=== PATIENT | female | born 1980 | race Caucasian/White ===

== ENCOUNTER → 2016-05-25 | Outpatient (CLI) | payer BC, OTHER ==
[2016-05-26 14:03] LABS: Crab IgE <0.35 kU/L (<0.35); Crab IgE Class CLASS 0; Lettuce IgE Class CLASS 0; Pork IgE Class CLASS 0
[2016-05-26 14:04] LABS: Beef IgE <0.35 kU/L (<0.35); Beef IgE Class CLASS 0; Yeast Bakers/Brew IgE <0.35 kU/L (<0.35); Yeast Bakers/Brew IgE Class CLASS 0
[2016-05-26 14:05] LABS: Lobster IgE <0.35 kU/L (<0.35); Lobster IgE Class CLASS 0; Oat IgE Class CLASS 0; Onion IgE <0.35 kU/L (<0.35); Onion IgE Class CLASS 0; Salmon IgE <0.35 kU/L (<0.35); Salmon IgE Class CLASS 0
[2016-05-26 14:06] LABS: Celery IgE <0.35 kU/L (<0.35); Celery IgE Class CLASS 0; Chicken IgE Class CLASS 0; Chocolate IgE Class CLASS 0; Egg Yolk IgE Class CLASS 0; Gluten IgE Class CLASS 0; Latex IgE Class CLASS 0
[2016-05-26 14:07] LABS: Avocado Class CLASS 0; Banana IgE Class CLASS 0; Coffee IgE <0.35 kU/L (<0.35); Coffee IgE Class CLASS 0; Cow's Milk IgE Class CLASS 0; Egg White IgE <0.35 kU/L (<0.35); Hazelnut IgE <0.35 kU/L (<0.35); Hazelnut IgE Class CLASS 0; Kiwi IgE <0.35 kU/L (<0.35); Kiwi IgE Class CLASS 0; Peanut IgE <0.35 kU/L (<0.35); Potato IgE <0.35 kU/L (<0.35); Potato IgE Class CLASS 0; Soybean IgE <0.35 kU/L (<0.35); Tea IgE <0.35 kU/L (<0.35); Tea IgE Class CLASS 0
== END | disposition home or self-care (01) ==
LOC: LABWHC1 09:30
PROVIDERS: ATTEND Otolaryngology
DX: J30.89 Other allergic rhinitis (principal)
CPT/HCPCS: 36415; 86003

== ENCOUNTER 2016-07-14 13:34 | Emergency (ER) | payer BC, OTHER ==
[2016-07-14 13:51] VITALS: TEMP 97.7
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
[2016-07-14] MEDS ORDERED: RX INFO: IV CONTRAST WAS GIVEN 1 EACH MISC MISCELLANE PRN (14:22)
[2016-07-14] MEDS ORDERED: SODIUM CHLORIDE 0.9% 1,000 ML IV STA (14:22)
[2016-07-14 14:57] LABS: Basophils # (A) 0.1 k/uL (0-0.2); Basophils % (A) 1 %; CH 30.8; CHCM 35.1; Eosinophils # (A) 0.1 k/uL (0-0.7); Eosinophils % (A) 1 %; HDW 3.16; HGB 15.2 gm/dL (11.4-16.0); Luc # (Auto) 0.35; Luc % (Auto) 4; Lymphocytes % (A) 36 %; MCH 30.4 pg (25.0-35.0); MCHC 34.4 g/dL (31.0-37.0); MCV 88.2 fL (80.0-100.0); Mean Platelet Volume 8.1; Monocytes # (A) 0.4 k/uL (0-1.0); Monocytes % (A) 5 %; Neutrophils # (A) 4.4 k/uL (1.3-7.7); Neutrophils % (A) 53 %; RBC 4.99 m/uL (3.80-5.40); RDW 13.5 % (11.5-15.5); WBC 8.3 k/uL (3.8-10.6); WBC (Perox) 8.18
[2016-07-14 15:01] LABS: ALT 173 U/L (9-52); AST 108 U/L (14-36); Alkaline Phosphatase 57 U/L (38-126); Anion Gap 11 mmol/L; Blood Urea Nitrogen 9 mg/dL (7-17); Calcium 9.9 mg/dL (8.4-10.2); Carbon Dioxide 29 mmol/L (22-30); Chloride 102 mmol/L (98-107); Glucose 93 mg/dL (74-99); Non-African American GFR(MDRD) >60 (>60 ml/min/1.73 sqM); Potassium 5.1 mmol/L (3.5-5.1); Sodium 142 mmol/L (137-145); Total Bilirubin 1.4 mg/dL (0.2-1.3); Total Protein 9.1 g/dL (6.3-8.2)
[2016-07-14 15:03] LABS: INR 0.9 (<1.1); Prothrombin Time 9.7 sec (9.0-12.0)
[2016-07-14 15:04] VITALS: RESP 16
[2016-07-14 15:23] LABS: Creatine Kinase MB 1.1 ng/mL (0.0-2.4)
[2016-07-14 15:38] LABS: Appearance,Urine Clear (Clear); Bacteria,Urine Rare /hpf; Bilirubin,Urine Negative (Negative); Glucose,Urine (UA) Negative (Negative); Ketones,Urine Negative (Negative); Leukocyte Esterase,Urine Negative (Negative); Mucus,Urine Rare /hpf; Nitrite,Urine Negative (Negative); PH, Urine 6.5 (5.0-8.0); Particle Count 1830; Protein,Urine Negative (Negative); RBC,Urine <1 /hpf (0-5); Specific Gravity,Urine 1.007 (1.001-1.035); Squamous Epithelial Cell,Urine 2 /hpf (0-4); UA Billing (MACRO vs. MICRO) MICRO; Urobilinogen,Urine <2.0 mg/dL (<2.0); WBC,Urine 1 /hpf (0-5)
[2016-07-14 15:49] LABS: Acetaminophen <10.0 ug/mL
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
--- NOTE | 2016-07-14 15:55 | XR ---
EXAMINATION TYPE: XR knee complete RT DATE OF EXAM ORDERED: 07/14/2016 3:50 PM HISTORY: Pain. COMPARISON: None. FINDINGS: No fracture, dislocation or joint effusion is seen. IMPRESSION: NORMAL RIGHT KNEE.
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
[2016-07-14 16:53] LABS: Hepatitis B Surface Ag Index 0.19
[2016-07-14 16:56] VITALS: BP 153/97; PULSE 77
[2016-07-14 16:59] LABS: Hepatitis B Core IgM Index 0.05
[2016-07-14 17:11] LABS: Hepatitis C Virus IgG Index 0.28
[2016-07-14 17:19] LABS: Hepatitis C Virus IgG Ab Negative (Negative)
== END 2016-07-14 16:56 | disposition home or self-care (01) ==
LOC: EC 13:34
DX: T14.8 Other injury of unspecified body region (principal); M79.601 Pain in right arm; M25.561 Pain in right knee; R31.9 Hematuria, unspecified; Z88.0 Allergy status to penicillin; V49.49XA Driver injured in collision with other motor vehicles in traffic accident, initial encounter
CPT/HCPCS: 36415; 93005; 86900; 86901; 80053; 80074; 82550; 82553; 83690; 85025; 85610; 85730; 86850; 81001; 83520; 73060; 73080; 73110; 73562; 71260; 74177; 96360; 96361; 99284; Q9967

== ENCOUNTER 2016-07-17 09:53 | Emergency (ER) | payer BC, OTHER ==
[2016-07-17 09:58] VITALS: RESP 18
[2016-07-17] MEDS ORDERED: ONDANSETRON 4 MG/2 ML VIAL IVP STA (11:02)
[2016-07-17] MEDS ORDERED: KETOROLAC 30 MG/ML 1 ML VIAL IVP STA (11:02)
[2016-07-17] MEDS ORDERED: RX INFO: IV CONTRAST WAS GIVEN 1 EACH MISC MISCELLANE PRN (11:02)
[2016-07-17] MEDS ORDERED: SODIUM CHLORIDE 0.9% 1,000 ML IV STA ×2 (11:02)
[2016-07-17] MEDS ORDERED: MAG HYDROX/AL HYDROX/SIMETH 30 ML, HYOSCYAMINE ELIXIR 10 ML, CIMETIDINE HCL 300 MG, LID... PO STA ×4 (11:03)
[2016-07-17 11:36] LABS: Basophils % (A) 0 %; CH 30.9; CHCM 35.3; Eosinophils # (A) 0.1 k/uL (0-0.7); Eosinophils % (A) 1 %; HCT 43.9 % (34.0-46.0); HDW 3.17; Luc % (Auto) 2; Lymphocytes # (A) 1.1 k/uL (1.0-4.8); Lymphocytes % (A) 13 %; MCH 30.1 pg (25.0-35.0); MCHC 34.2 g/dL (31.0-37.0); Mean Platelet Volume 8.1; Monocytes # (A) 0.3 k/uL (0-1.0); Monocytes % (A) 3 %; Neutrophils # (A) 7.1 k/uL (1.3-7.7); Neutrophils % (A) 81 %; RBC 4.99 m/uL (3.80-5.40); RDW 13.4 % (11.5-15.5); WBC 8.7 k/uL (3.8-10.6); WBC (Perox) 8.88
[2016-07-17 11:45] LABS: ALT 134 U/L (9-52); AST 48 U/L (14-36); Alkaline Phosphatase 65 U/L (38-126); Amylase 53 U/L (30-110); Anion Gap 13 mmol/L; Blood Urea Nitrogen 8 mg/dL (7-17); Calcium 9.4 mg/dL (8.4-10.2); Carbon Dioxide 27 mmol/L (22-30); Chloride 102 mmol/L (98-107); Glucose 103 mg/dL (74-99); Non-African American GFR(MDRD) >60 (>60 ml/min/1.73 sqM); Potassium 3.9 mmol/L (3.5-5.1); Sodium 142 mmol/L (137-145); Total Bilirubin 1.2 mg/dL (0.2-1.3); Total Protein 8.4 g/dL (6.3-8.2)
[2016-07-17 11:56] LABS: Partial Thromboplastin Time 25.5 sec (22.0-30.0); Prothrombin Time 10.2 sec (9.0-12.0)
[2016-07-17 11:56] LABS: Appearance,Urine Cloudy (Clear); Bacteria,Urine Rare /hpf; Bilirubin,Urine Negative (Negative); Glucose,Urine (UA) Negative (Negative); Ketones,Urine Negative (Negative); Leukocyte Esterase,Urine Large (Negative); Mucus,Urine Rare /hpf; Nitrite,Urine Negative (Negative); Particle Count 23914; Protein,Urine Trace (Negative); Specific Gravity,Urine 1.013 (1.001-1.035); Squamous Epithelial Cell,Urine 17 /hpf (0-4); UA Billing (MACRO vs. MICRO) MICRO; Urobilinogen,Urine <2.0 mg/dL (<2.0); WBC,Urine 36 /hpf (0-5)
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
[2016-07-17 12:34] VITALS: BP 144/87; PULSE 94; TEMP 100.1
== END 2016-07-17 12:40 | disposition home or self-care (01) ==
LOC: EC 09:53
DX: N39.0 Urinary tract infection, site not specified (principal); N83.209 Unspecified ovarian cyst, unspecified side; K76.0 Fatty (change of) liver, not elsewhere classified; R74.0 Nonspecific elevation of levels of transaminase and lactic acid dehydrogenase [LDH]; R19.7 Diarrhea, unspecified; I10 Essential (primary) hypertension; Z88.1 Allergy status to other antibiotic agents
CPT/HCPCS: 99284; 96374; 96375; 96361; 36415; 80053; 82150; 83690; 85025; 85610; 85730; 81001; 74177; J2405; J1885; Q9967

== ENCOUNTER 2016-09-13 13:38 | Emergency (ER) | payer BC ==
[2016-09-13 15:19] VITALS: PULSE 95
--- NOTE | 2016-09-13 15:24 | ED ---
General Adult HPI - General Chief complaint: Dizziness Stated complaint: Back Pain Time Seen by Provider: 09/13/16 15:06 Source: patient Mode of arrival: ambulatory Limitations: no limitations - History of Present Illness Initial comments: This patient is a 36-year-old woman who complains of over 2 months of left mid back pain. Patient describes it as constant, aching, moderately severe area she has not noted any relieving factors and states that it is worse when she presses there. The patient denied any preceding trauma. She has seen her physician. She states that she has been treated for urinary tract infection twice. She states that she has been set up to have an ultrasound performed but this will not be until next week and she feels that the pain will not let her wait until then. She denies fever or chills, chest pain, palpitations, dyspnea , diaphoresis. She has had some nausea and some generalized abdominal bloating type discomfort. Patient denies any weakness or numbness of the extremities. She has not had any change in bladder or bowel function nor any saddle anesthesia. Onset/Timin -: month(s) Location: back, left Radiation: non-radiation Quality: aching Consistency: constant Improves with: none Worsens with: movement Associated Symptoms: nausea/vomiting Treatments Prior to Arrival: other (Antibiotic) - Related Data Home Medications Medication Instructions Recorded Confirmed Lisinopril-Hctz 10-12.5 mg 1 tab PO DAILY 09/13/16 09/13/16 [Zestoretic 10-12.5] Montelukast [Singulair] 10 mg PO DAILY PRN 09/13/16 09/13/16 Previous Rx's Medication Instructions Recorded traMADol HCl [Ultram] 50 mg PO Q6H PRN #20 tab 09/13/16 Allergies Allergy/AdvReac Type Severity Reaction Status Date / Time amoxicillin Allergy Rash/Hives Verified 09/13/16 15:23 Review of Systems ROS Statement: Those systems with pertinent positive or pertinent negative responses have been documented in the HPI. ROS Other: All systems not noted in ROS Statement are negative. Constitutional: Denies: fever, chills Respiratory: Denies: cough, dyspnea Cardiovascular: Denies: chest pain, palpitations, edema Gastrointestinal: Reports: as per HPI, abdominal pain Genitourinary: Denies: dysuria, frequency, hematuria, discharge Musculoskeletal: Reports: as per HPI, back pain Skin: Denies: rash Neurological: Denies: headache, weakness, numbness, paresthesias, abnormal gait Past Medical History Past Medical History: No Reported History Additional Past Medical History / Comment(s): gestational diabetes History of Any Multi-Drug Resistant Organisms: None Reported Past Surgical History: Cholecystectomy, Tubal Ligation Past Psychological History: Anxiety, Depression Smoking Status: Never smoker Past Alcohol Use History: None Reported Past Drug Use History: None Reported General Exam Limitations: no limitations General appearance: alert, in no apparent distress, obese Head exam: Present: atraumatic, normocephalic Eye exam: Present: normal appearance Neck exam: Present: normal inspection, full ROM. Absent: tenderness Respiratory exam: Present: normal lung sounds bilaterally. Absent: respiratory distress, wheezes, rales, rhonchi, stridor Cardiovascular Exam: Present: regular rate, normal rhythm, normal heart sounds. Absent: systolic murmur, diastolic murmur, rubs, gallop GI/Abdominal exam: Present: soft. Absent: distended, tenderness, guarding, rebound, mass Extremities exam: Present: normal inspection, normal capillary refill. Absent: pedal edema, calf tenderness Back exam: Present: full ROM, paraspinal tenderness. Absent: CVA tenderness (R) , CVA tenderness (L), vertebral tenderness, rash noted Neurological exam: Present: alert, reflexes normal. Absent: motor sensory deficit Skin exam: Present: warm, dry, intact, normal color. Absent: rash Course Vital Signs 09/13/16 09/13/16 13:52 15:01 Temperature 98.7 F 98.2 F Pulse Rate 98 95 Respiratory 18 18 Rate Blood Pressure 122/71 135/83 O2 Sat by Pulse 99 98 Oximetry Medical Decision Making - Lab Data Result diagrams: 09/13/16 15:48 09/13/16 15:48 Lab Results 09/13/16 09/13/16 09/13/16 Range/Units 15:20 15:48 15:48 WBC 10.7 H (3.8-10.6) k/uL RBC 4.84 (3.80-5.40) m/uL Hgb 14.7 (11.4-16.0) gm/dL Hct 43.1 (34.0-46.0) % MCV 89.1 (80.0-100.0) fL MCH 30.4 (25.0-35.0) pg MCHC 34.1 (31.0-37.0) g/dL RDW 13.5 (11.5-15.5) % Plt Count 220 (150-450) k/uL Neutrophils % 59 % Lymphocytes % 33 % Monocytes % 5 % Eosinophils % 1 % Basophils % 1 % Neutrophils # 6.3 (1.3-7.7) k/uL Lymphocytes # 3.5 (1.0-4.8) k/uL Monocytes # 0.5 (0-1.0) k/uL Eosinophils # 0.1 (0-0.7) k/uL Basophils # 0.1 (0-0.2) k/uL ESR Cancelled Sodium 139 (137-145) mmol/L Potassium 3.8 (3.5-5.1) mmol/L Chloride 101 (98-107) mmol/L Carbon Dioxide 28 (22-30) mmol/L Anion Gap 10 mmol/L BUN 10 (7-17) mg/dL Creatinine 0.60 (0.52-1.04) mg/dL Est GFR (MDRD) Af Amer >60 (>60 ml/min/1.73 sqM) Est GFR (MDRD) Non-Af >60 (>60 ml/min/1.73 sqM) Glucose 97 (74-99) mg/dL Calcium 9.5 (8.4-10.2) mg/dL Total Bilirubin 0.8 (0.2-1.3) mg/dL AST 98 H (14-36) U/L ALT 185 H (9-52) U/L Alkaline Phosphatase 74 (38-126) U/L Total Protein 7.7 (6.3-8.2) g/dL Albumin 4.3 (3.5-5.0) g/dL Amylase 69 (30-110) U/L Lipase 194 (23-300) U/L Urine Color Colorless Urine Appearance Clear (Clear) Urine pH 6.0 (5.0-8.0) Ur Specific [place] 1.003 (1.001-1.035) Urine Protein Negative (Negative) Urine Glucose (UA) Negative (Negative) Urine Ketones Negative (Negative) Urine Blood Moderate H (Negative) Urine Nitrite Negative (Negative) Urine Bilirubin Negative (Negative) Urine Urobilinogen <2.0 (<2.0) mg/dL Ur Leukocyte Esterase Trace H (Negative) Urine RBC 2 (0-5) /hpf Urine WBC 2 (0-5) /hpf Ur Squamous Epith Cells 1 (0-4) /hpf Urine Bacteria Few H (None) /hpf Urine Mucus Rare H (None) /hpf Disposition Clinical Impression: Ovarian cyst Disposition: HOME SELF-CARE Condition: Fair Instructions: Ovarian Cyst (ED) Prescriptions: traMADol HCl [Ultram] 50 mg PO Q6H PRN #20 tab PRN Reason: Pain Referrals: Juan Pablo Castro MD [Primary Care Provider] - 1-2 days Debo Beebe MD [STAFF PHYSICIAN] - 1-2 days
[2016-09-13 15:44] LABS: Appearance,Urine Clear (Clear); Bacteria,Urine Few /hpf; Bilirubin,Urine Negative (Negative); Glucose,Urine (UA) Negative (Negative); Ketones,Urine Negative (Negative); Leukocyte Esterase,Urine Trace (Negative); Mucus,Urine Rare /hpf; Nitrite,Urine Negative (Negative); Particle Count 4872; Protein,Urine Negative (Negative); RBC,Urine 2 /hpf (0-5); Specific Gravity,Urine 1.003 (1.001-1.035); Squamous Epithelial Cell,Urine 1 /hpf (0-4); UA Billing (MACRO vs. MICRO) MICRO; Urobilinogen,Urine <2.0 mg/dL (<2.0); WBC,Urine 2 /hpf (0-5)
[2016-09-13 16:12] LABS: Basophils # (A) 0.1 k/uL (0-0.2); Basophils % (A) 1 %; CH 30.8; CHCM 34.7; Eosinophils # (A) 0.1 k/uL (0-0.7); Eosinophils % (A) 1 %; HCT 43.1 % (34.0-46.0); HDW 2.87; HGB 14.7 gm/dL (11.4-16.0); Luc # (Auto) 0.26; Luc % (Auto) 2; Lymphocytes # (A) 3.5 k/uL (1.0-4.8); Lymphocytes % (A) 33 %; MCH 30.4 pg (25.0-35.0); MCHC 34.1 g/dL (31.0-37.0); MCV 89.1 fL (80.0-100.0); Mean Platelet Volume 8.4; Monocytes # (A) 0.5 k/uL (0-1.0); Monocytes % (A) 5 %; Neutrophils # (A) 6.3 k/uL (1.3-7.7); Neutrophils % (A) 59 %; RBC 4.84 m/uL (3.80-5.40); RDW 13.5 % (11.5-15.5); WBC 10.7 k/uL (3.8-10.6); WBC (Perox) 10.71
[2016-09-13 16:19] LABS: ALT 185 U/L (9-52); AST 98 U/L (14-36); Alkaline Phosphatase 74 U/L (38-126); Amylase 69 U/L (30-110); Anion Gap 10 mmol/L; Blood Urea Nitrogen 10 mg/dL (7-17); Calcium 9.5 mg/dL (8.4-10.2); Carbon Dioxide 28 mmol/L (22-30); Chloride 101 mmol/L (98-107); Glucose 97 mg/dL (74-99); Non-African American GFR(MDRD) >60 (>60 ml/min/1.73 sqM); Potassium 3.8 mmol/L (3.5-5.1); Sodium 139 mmol/L (137-145); Total Bilirubin 0.8 mg/dL (0.2-1.3); Total Protein 7.7 g/dL (6.3-8.2)
--- NOTE | 2016-09-13 17:08 | CT ---
EXAMINATION TYPE: CT abdomen pelvis wo con DATE OF EXAM: 09/13/2016 4:55 PM COMPARISON: 07/17/2016 HISTORY: Left flank pain and generalized abdominal pain. CT DLP: 1008.30 mGycm Automated exposure control for dose reduction was used. TECHNIQUE: Helical acquisition of images was performed from the lung bases through the pelvis. FINDINGS: The lung bases are clear of consolidation. There is no pleural effusion. Liver shows no focal defect. There are clips from cholecystectomy. Spleen appears normal. There is decreased density in the liver consistent with fatty infiltration. There is no sign of pancreatic mass. There is no adrenal mass. K idneys have normal size and contour. There is no hydronephrosis. There is no retroperitoneal adenopat hy. There is a small umbilical hernia contains omental fat. I see no intestinal wall thickening. Ther e are no dilated loops. Appendix is not seen. There is no sign of appendicitis. There is a 2 cm cyst on the left ovary. Bladder distends smoothly. There is no ascites. I see no bony destructive process. Uterus is retroverted. IMPRESSION: THERE IS EVIDENCE FOR SOME MILD FATTY INFILTRATION OF THE LIVER. NO SIGN OF ACUTE ABDOMEN AND PELVIS. NO ADVERSE CHANGE COMPARED TO OLD EXAM.
[2016-09-13 17:41] VITALS: BP 151/71; RESP 16; TEMP 98.5
== END 2016-09-13 17:38 | disposition home or self-care (01) ==
LOC: EC 13:38
DX: N83.202 Unspecified ovarian cyst, left side (principal); M54.9 Dorsalgia, unspecified; R11.2 Nausea with vomiting, unspecified; R10.84 Generalized abdominal pain; Z79.899 Other long term (current) drug therapy; Z88.0 Allergy status to penicillin; Z90.49 Acquired absence of other specified parts of digestive tract; Z98.51 Tubal ligation status
CPT/HCPCS: 36415; 74176; 80053; 81001; 82150; 83690; 85025; 85652; 99284

== ENCOUNTER → 2016-09-21 | Outpatient (CLI) | payer BC ==
--- NOTE | 2016-09-21 22:15 | US ---
EXAMINATION TYPE: US kidneys/renal and bladder DATE OF EXAM: 09/21/2016 3:10 PM COMPARISON: NONE CLINICAL HISTORY: 36-year-old female with R92.8 Abnormal mammo. Lower back pain. TECHNIQUE: Multiple sonographic images of the kidneys and bladder were obtained. FINDINGS: CONSUMER INSIGHT ANALYST NOTES: Larger habitus Right Kidney: 12.5 x 5.0 x 6.5 cm without hydronephrosis. Left Kidney: 10.9 x 5.6 x 5.5 cm without hydronephrosis. No gross abnormality of the urine distended bladder. However, neither ureteral jet is seen during the course of the exam. IMPRESSION: No hydronephrosis.
== END | disposition home or self-care (01) ==
LOC: RADUSWWP 14:31
PROVIDERS: ATTEND Family Medicine
DX: M54.5 Low back pain (principal)
CPT/HCPCS: 76770

== ENCOUNTER → 2016-10-27 | Outpatient (CLI) | payer BC, OTHER ==
[2016-10-27 15:23] LABS: Follicle Stimulating Hormone 3.7 mIU/mL; Prolactin 17.1 ng/mL (3.0-18.6)
--- NOTE | 2016-10-27 16:20 | US ---
EXAMINATION TYPE: US pelvic complete DATE OF EXAM: 10/27/2016 COMPARISON: CT CLINICAL HISTORY: N91.2 AMENORRHEA. TECHNIQUE: Transabdominal (TA) Date of LMP: one year ago EXAM MEASUREMENTS: Uterus: 9.4 x 5.4 x 7.2 cm Endometrial Stripe: 1.2 cm Right Ovary: 3.2 x 2.2 x 2.7 cm Left Ovary: 4.8 x 3.5 x 3.8 cm 1. Uterus: Retroverted wnl 2. Endometrium: measures 1.2 cm, no cycles for one year per patient. 3. Right Ovary: wnl 4. Left Ovary: 2.0 cm cyst 5. Bilateral Adnexa: wnl 6. Posterior cul-de-sac: no free fluid IMPRESSION: Left ovarian cyst
== END | disposition home or self-care (01) ==
LOC: RADUSWWP 14:19
PROVIDERS: ATTEND Obstetrics & Gynecology
DX: N83.202 Unspecified ovarian cyst, left side (principal)
CPT/HCPCS: 36415; 76856; 82627; 82670; 83001; 83002; 84146; 84403

== ENCOUNTER → 2019-01-27 | Outpatient (CLI) | payer BC, OTHER ==
--- NOTE | 2019-01-27 17:21 | US ---
EXAMINATION TYPE: US thyroid st tissue head/neck DATE OF EXAM: 01/27/2019 COMPARISON: NONE CLINICAL HISTORY: 38-year-old female E04.9 Nontoxic Goiter. Technique: Multiple sonographic images of the thyroid gland are obtained. FINDINGS: GLAND SIZE: Right Lobe: 5.0 x 1.2 x 1.7 cm Overall Parenchyma: homogenous Left Lobe: 4.6 x 1.1 x 1.7 cm Overall Parenchyma: homogeneous Isthmus Thickness: .2 cm NODULES RIGHT: # of nodules measured on right: 0 LEFT: # of nodules measured on left: 0 ISTHMUS: # of nodules measured in the isthmus: 0 Bilateral neck scanned, no evidence of lymphadenopathy. IMPRESSION: 1. No discrete nodules. 2. Thyroid gland measures upper limits of normal in size as above.
== END | disposition home or self-care (01) ==
LOC: RADUSWWP 14:26
PROVIDERS: ATTEND Family Medicine
DX: E04.9 Nontoxic goiter, unspecified (principal)
CPT/HCPCS: 76536

== ENCOUNTER 2019-02-08 09:18 | Emergency (ER) | payer BC, OTHER ==
[2019-02-08 09:24] VITALS: BP 126/88; PULSE 92; RESP 18; TEMP 97.9
--- NOTE | 2019-02-08 10:04 | ED ---
Skin/Abscess/FB HPI - General Chief complaint: Skin/Abscess/Foreign Body Stated complaint: rt leg bump Time Seen by Provider: 02/08/19 09:42 Source: patient, RN notes reviewed Mode of arrival: ambulatory Limitations: no limitations - History of Present Illness Initial comments: 30-year-old female presents emergency from chief complaint of abscess to her right groin. Patient states it started a couple days ago. There's been a small amount of drainage states area just very firm, red in nature. Patient has no history of abscess or recurrent skin infections. Patient states that she's had no fever, chills. Patient does admit she has ALLERGY to amoxicillin no other drug ALLERGIES. Patient offers no complaints. - Related Data Home Medications Medication Instructions Recorded Confirmed Lisinopril-Hctz 10-12.5 mg 1 tab PO DAILY 09/13/16 09/13/16 [Zestoretic 10-12.5] Montelukast [Singulair] 10 mg PO DAILY PRN 09/13/16 09/13/16 Previous Rx's Medication Instructions Recorded traMADol HCl [Ultram] 50 mg PO Q6H PRN #20 tab 09/13/16 Cephalexin [Keflex] 500 mg PO Q6HR #40 cap 02/08/19 Sulfamethox-Tmp 800-160Mg [Bactrim 1 each PO Q12HR #20 tab 02/08/19 Ds] Allergies Allergy/AdvReac Type Severity Reaction Status Date / Time amoxicillin Allergy Rash/Hives Verified 09/13/16 15:23 Review of Systems ROS Statement: Those systems with pertinent positive or pertinent negative responses have been documented in the HPI. ROS Other: All systems not noted in ROS Statement are negative. Past Medical History Past Medical History: No Reported History Additional Past Medical History / Comment(s): gestational diabetes History of Any Multi-Drug Resistant Organisms: None Reported Past Surgical History: Cholecystectomy, Tubal Ligation Past Psychological History: Anxiety, Depression Smoking Status: Never smoker Past Alcohol Use History: None Reported Past Drug Use History: None Reported General Exam Limitations: no limitations General appearance: alert, in no apparent distress Head exam: Present: atraumatic, normocephalic, normal inspection Eye exam: Present: normal appearance, PERRL, EOMI. Absent: scleral icterus, conjunctival injection, periorbital swelling Respiratory exam: Present: normal lung sounds bilaterally. Absent: respiratory distress, wheezes, rales, rhonchi, stridor Cardiovascular Exam: Present: regular rate, normal rhythm, normal heart sounds. Absent: systolic murmur, diastolic murmur, rubs, gallop, clicks Extremities exam: Present: other (Right medial thigh there is approximate 2 cm area of erythema that is firm and indurated with no fluctuation) Skin exam: Present: warm, dry, intact Course Vital Signs 02/08/19 09:22 Temperature 97.9 F Pulse Rate 92 Respiratory 18 Rate Blood Pressure 126/88 O2 Sat by Pulse 98 Oximetry Medical Decision Making - Medical Decision Making 38-year-old female presented for right groin abscess. This is very firm in nature and nonfluctuant did not feel that she'll benefit from a 90 at this time. She was started on antibiotics, warm compresses and continue anti- inflammatories. Disposition Clinical Impression: Abscess of groin, right Disposition: HOME SELF-CARE Condition: Stable Instructions (If sedation given, give patient instructions): Abscess (ED) Additional Instructions: Please return to the Emergency Department if symptoms worsen or any other concerns. Prescriptions: Sulfamethox-Tmp 800-160Mg [Bactrim Ds] 1 each PO Q12HR #20 tab Cephalexin [Keflex] 500 mg PO Q6HR #40 cap Is patient prescribed a controlled substance at d/c from ED?: No Referrals: Srinivas Ocampo MD [Primary Care Provider] - 1-2 days Time of Disposition: 10:04
== END 2019-02-08 10:08 | disposition home or self-care (01) ==
LOC: EC 09:18
DX: L02.214 Cutaneous abscess of groin (principal); Z88.0 Allergy status to penicillin
CPT/HCPCS: 99283

== ENCOUNTER → 2019-07-14 | Outpatient (CLI) | payer BC, OTHER ==
--- NOTE | 2019-07-23 19:38 | EM ---
EVENT MONITOR SEVEN-DAY EVENT MONITOR: The patient was monitored for 7 days. The baseline rhythm appeared to be sinus mechanism. During the 7 days of monitoring, the patient did have multiple episodes of sinus tachycardia with a heart rate around 130 beats per minute. No evidence of any SVT or atrial fibrillation noted. No evidence of any ventricular tachycardia seen. No evidence of any advanced AV block seen. No evidence of any concerning arrhythmia noted. CONCLUSION: 1. This is a 7-day event monitor. 2. Sinus rhythm as a baseline mechanism. 3. The patient did have multiple episodes of sinus tachycardia. 4. During the episodes of sinus tachycardia, the patient did have symptoms of chest discomfort and chest tightness. 5. No evidence of any advanced AV block seen. 6. No evidence of any sinus pause or sinus arrest. 7. No evidence of any SVT or atrial fibrillation. MMODL / IJN: [id number] /
== END | disposition home or self-care (01) ==
LOC: RADECHMAIN 11:46
PROVIDERS: ATTEND Family Medicine
DX: R00.0 Tachycardia, unspecified (principal); R07.89 Other chest pain
CPT/HCPCS: 93270

== ENCOUNTER 2019-10-01 14:47 | Emergency (ER) | payer BC, OTHER ==
[2019-10-01 14:57] VITALS: RESP 18; TEMP 98.3
[2019-10-01] MEDS ORDERED: DIPH,PERTUS(ACELL)TETVAC-LF 0.5 ML VIAL IM ONE (15:23)
[2019-10-01] MEDS ORDERED: CEPHALEXIN 500MG STARTER PACK 4 CAP BTL PO STA (15:36)
[2019-10-01] MEDS ORDERED: ACET/COD 300 MG/30 MG STARTER PACK 6 TAB BTL PO STA (15:38)
--- NOTE | 2019-10-01 15:46 | ED ---
Skin/Abscess/FB HPI - General Chief complaint: Skin/Abscess/Foreign Body Stated complaint: Has something stuck in R foot Time Seen by Provider: 10/01/19 15:12 Source: patient Mode of arrival: wheelchair Limitations: no limitations - History of Present Illness Initial comments: 31-year-old female stating that there is a ric part of a chair leg stuck in the patient right lateral aspect of foot pad. Pt states tetanus is no UTD. injury occurred just prior to arrival and she did not want to remove the object herself. Patient denies any other area of injury. Denies DM or MRSA history. remaining ROS (-). - Related Data Home Medications Medication Instructions Recorded Confirmed Lisinopril-Hctz 10-12.5 mg 1 tab PO DAILY 09/13/16 09/13/16 [Zestoretic 10-12.5] Montelukast [Singulair] 10 mg PO DAILY PRN 09/13/16 09/13/16 Previous Rx's Medication Instructions Recorded traMADol HCl [Ultram] 50 mg PO Q6H PRN #20 tab 09/13/16 Cephalexin [Keflex] 500 mg PO Q6HR #40 cap 02/08/19 Sulfamethox-Tmp 800-160Mg [Bactrim 1 each PO Q12HR #20 tab 02/08/19 Ds] Cephalexin [Keflex] 500 mg PO Q6HR 7 Days #28 cap 10/01/19 Allergies Allergy/AdvReac Type Severity Reaction Status Date / Time amoxicillin Allergy Rash/Hives Verified 10/01/19 14:58 Review of Systems ROS Statement: Those systems with pertinent positive or pertinent negative responses have been documented in the HPI. ROS Other: All systems not noted in ROS Statement are negative. Past Medical History Past Medical History: Hypertension Additional Past Medical History / Comment(s): gestational diabetes History of Any Multi-Drug Resistant Organisms: None Reported Past Surgical History: Cholecystectomy, Tubal Ligation Past Psychological History: Anxiety, Depression Smoking Status: Never smoker Past Alcohol Use History: None Reported Past Drug Use History: None Reported General Exam - General Exam Comments Initial Comments: General: The patient is awake and alert, in no distress, and does not appear acutely ill. Eye: Pupils are equal, round and reactive to light, extra-ocular movements are intact. No nystagmus. There is normal conjunctiva bilaterally. No signs of icterus. Ears, nose, mouth and throat: There are moist mucous membranes and no oral lesions. Musculoskeletal: Normal ROM, no tenderness. Strength 5/5. Sensation intact. DP pulses equal bilaterally 2+. Neurological: A&O x 3. CN II-XII intact grossly, There are no obvious motor or sensory deficits. Coordination appears grossly intact. Speech is normal. Skin: Skin is warm and dry and no rashes. Ric foreign body right lateral foot pad, superficial easily removed, blood on FB 1/3cm. Patient has puncture where FB removed-- appear whole, sharp point tip, no rough jagged tip worrisome for broke off portion. Psychiatric: Cooperative, appropriate mood & affect, normal judgment. Limitations: no limitations Course Vital Signs 10/01/19 14:55 Temperature 98.3 F Pulse Rate 103 H Respiratory 18 Rate Blood Pressure 122/80 O2 Sat by Pulse 99 Oximetry Medical Decision Making - Medical Decision Making 39-year-old female presented for right foot foreign body foreign body removed the foreign body appeared physically intact no evidence of retained foreign body foot was soaked and cleansed tetanus updated patient educated on signs of infection L be discharged with Keflex. Return parameters discussed discussed case with him prior who is agreeable to care for discharge at this time. Pt aware that this is a high risk for infection. Disposition Clinical Impression: Foreign body in foot, Puncture wound Disposition: HOME SELF-CARE Condition: Good Instructions (If sedation given, give patient instructions): Soft Tissue Fore ign Body (ED), Puncture Wound (ED) Additional Instructions: Please use medication as discussed. Please follow-up with family doctor in the next 2 days, this injury is high risk for infection PLEASE WATCH FOR INCREASING REDNESS/SWELLING OR PAIN, immediate return to ER for these symptoms or if you develop a fever. Please return to emergency room if the symptoms increase or worsen or for any other concerns. Prescriptions: Cephalexin [Keflex] 500 mg PO Q6HR 7 Days #28 cap Is patient prescribed a controlled substance at d/c from ED?: No Referrals: Srinivas Ocampo MD [Primary Care Provider] - 1-2 days Time of Disposition: 16:05
[2019-10-01 16:30] VITALS: BP 120/76; PULSE 89
== END 2019-10-01 16:35 | disposition home or self-care (01) ==
LOC: EC 14:47
DX: S81.841A Puncture wound with foreign body, right lower leg, initial encounter (principal); I10 Essential (primary) hypertension; Z23 Encounter for immunization; Z79.899 Other long term (current) drug therapy; Z88.0 Allergy status to penicillin; W45.8XXA Other foreign body or object entering through skin, initial encounter; Y92.89 Other specified places as the place of occurrence of the external cause
CPT/HCPCS: 10120; 90471; 90715; 99283

== ENCOUNTER → 2020-03-12 | Outpatient (CLI) | payer BC, OTHER | END | disposition home or self-care (01) | LOC: LABWHC1 14:38 | PROVIDERS: ATTEND Family Medicine | DX: R05 Cough (principal) | CPT/HCPCS: 87502; U0003; C9803 ==

== ENCOUNTER 2020-05-07 09:28 | Emergency (ER) | payer BC, OTHER ==
[2020-05-07 09:33] VITALS: BP 136/89; PULSE 102; RESP 18; TEMP 98.4
--- NOTE | 2020-05-07 09:42 | ED ---
URI HPI - General Source: patient, RN notes reviewed Mode of arrival: ambulatory Limitations: no limitations <Chuy Combs - Last Filed: 05/07/20 10:04> <Karen Terry - Last Filed: 05/08/20 12:54> - General Chief Complaint: Upper Respiratory Infection Stated Complaint: LOST OF TASTE/SORE THROAT/FATIGUE Time Seen by Provider: 05/07/20 09:35 - History of Present Illness Initial Comments: 39-year-old female presents emergency Department chief complaint of cough congestion bodyaches,. Patient states that she started symptoms 3 days ago. Patient does have a known exposure. Patient denies any significant shortness breath, no significant GI symptoms other than slight nausea. No history of COPD or asthma. Patient denies any chest pain, headache dizziness fevers or chills. (Chuy Combs) - Related Data Home Medications Medication Instructions Recorded Confirmed Lisinopril-Hctz 10-12.5 mg 1 tab PO DAILY 09/13/16 09/13/16 [Zestoretic 10-12.5] Montelukast [Singulair] 10 mg PO DAILY PRN 09/13/16 09/13/16 Previous Rx's Medication Instructions Recorded traMADol HCl [Ultram] 50 mg PO Q6H PRN #20 tab 09/13/16 Cephalexin [Keflex] 500 mg PO Q6HR #40 cap 02/08/19 Sulfamethox-Tmp 800-160Mg [Bactrim 1 each PO Q12HR #20 tab 02/08/19 Ds] Cephalexin [Keflex] 500 mg PO Q6HR 7 Days #28 cap 10/01/19 Allergies Allergy/AdvReac Type Severity Reaction Status Date / Time amoxicillin Allergy Rash/Hives Verified 05/07/20 09:34 Review of Systems ROS Other: All systems not noted in ROS Statement are negative. <Chuy Combs - Last Filed: 05/07/20 10:04> ROS Other: All systems not noted in ROS Statement are negative. <Karen Terry - Last Filed: 05/08/20 12:54> ROS Statement: Those systems with pertinent positive or pertinent negative responses have been documented in the HPI. Past Medical History Past Medical History: Hypertension Additional Past Medical History / Comment(s): gestational diabetes History of Any Multi-Drug Resistant Organisms: None Reported Past Surgical History: Cholecystectomy, Tubal Ligation Past Psychological History: Anxiety, Depression Smoking Status: Never smoker Past Alcohol Use History: Occasional Past Drug Use History: None Reported <Chuy Combs - Last Filed: 05/07/20 10:04> General Exam Limitations: no limitations General appearance: alert, in no apparent distress Head exam: Present: atraumatic, normocephalic, normal inspection Eye exam: Present: normal appearance, PERRL, EOMI. Absent: scleral icterus, conjunctival injection, periorbital swelling ENT exam: Present: normal exam, normal oropharynx, mucous membranes moist Neck exam: Present: normal inspection, full ROM. Absent: tenderness, men ingismus, lymphadenopathy Respiratory exam: Present: normal lung sounds bilaterally. Absent: respiratory distress, wheezes, rales, rhonchi, stridor Cardiovascular Exam: Present: regular rate, normal rhythm, normal heart sounds. Absent: systolic murmur, diastolic murmur, rubs, gallop, clicks GI/Abdominal exam: Present: soft, normal bowel sounds. Absent: distended, tenderness, guarding, rebound, rigid Back exam: Absent: CVA tenderness (R), CVA tenderness (L) Neurological exam: Present: alert Skin exam: Present: warm, dry, intact, normal color. Absent: rash <Chuy Combs - Last Filed: 05/07/20 10:04> Course Vital Signs 05/07/20 09:31 Temperature 98.4 F Pulse Rate 102 H Respiratory 18 Rate Blood Pressure 136/89 O2 Sat by Pulse 98 Oximetry Medical Decision Making <Chuy Combs - Last Filed: 05/07/20 10:04> <Karen Terry - Last Filed: 05/08/20 12:54> - Medical Decision Making X-ray is unremarkable, vitals are within normal limits patient is a signs distress. Patient is Covid positive. Patient will be discharged in stable condition. She is instructed to self quarantining for 14 days. Patient is return for any worsening change in symptoms. (Chuy Combs) I was available for consultation in the emergency department. The history and physical exam were done by the midlevel provider. I was consulted for this patients care. I reviewed the case with the midlevel provider and based on their presentation of the patient, I agree with the assessment, medical decision making and plan of care as documented. Chart was dictated using [employer] dictation software. Attempts were made to correct any dictation errors however some typographical errors may persist. Patient was seen during a national state of emergency due to the Covid-19 pandemic. (Karen Terry) - Lab Data Lab Results 05/07/20 Range/Units 09:41 Coronavirus (PCR) Detected A (Not Detectd) Disposition Is patient prescribed a controlled substance at d/c from ED?: No Time of Disposition: 10:05 <Chuy Combs - Last Filed: 05/07/20 10:04> <Karen Terry - Last Filed: 05/08/20 12:54> Clinical Impression: COVID-19 Disposition: HOME SELF-CARE Condition: Stable Instructions (If sedation given, give patient instructions): Upper Respiratory Infection (ED) Additional Instructions: Please return to the Emergency Department if symptoms worsen or any other concerns. Take [id number] vitamin D, vitamin D3, zinc Referrals: Srinivas Ocampo MD [Primary Care Provider] - 1-2 days
--- NOTE | 2020-05-07 09:56 | XR ---
EXAMINATION TYPE: XR chest 2V DATE OF EXAM: 05/07/2020 COMPARISON: Chest x-ray December 22, 2014 HISTORY: Loss of taste and fatigue. TECHNIQUE: Frontal and lateral views of the chest are obtained. FINDINGS: There is no new suspicious focal air space opacity, pleural effusion, or pneumothorax seen . The cardiac silhouette size remains within normal limits. The osseous structures are intact. Cho lecystectomy clips are noted. IMPRESSION: No acute cardiopulmonary process.
== END 2020-05-07 10:11 | disposition home or self-care (01) ==
LOC: EC 09:28
DX: U07.1 COVID-19 (principal); I10 Essential (primary) hypertension; Z79.899 Other long term (current) drug therapy; Z88.0 Allergy status to penicillin; Z90.49 Acquired absence of other specified parts of digestive tract
CPT/HCPCS: 71046; 87635; 99284

== ENCOUNTER 2020-05-14 11:31 | Emergency (ER) | payer BC, OTHER ==
[2020-05-14 11:40] VITALS: RESP 18
[2020-05-14] MEDS ORDERED: ONDANSETRON 4 MG/2 ML VIAL IVP STA (12:05)
[2020-05-14] MEDS ORDERED: SODIUM CHLORIDE 0.9% 1,000 ML IV STA (12:05)
[2020-05-14] MEDS ORDERED: methylPREDNISolone SOD SUCCI 125 MG/2 ML VIAL IV STA (12:05)
[2020-05-14] MEDS ORDERED: ACETAMINOPHEN TAB 500 MG TAB PO STA (12:06)
--- NOTE | 2020-05-14 12:33 | ED ---
SOB HPI - General Chief Complaint: Shortness of Breath Stated Complaint: Covid +, chest pain, SOB Time Seen by Provider: 05/14/20 11:44 Source: patient Mode of arrival: wheelchair Limitations: no limitations - History of Present Illness Initial Comments: Patient is a 39-year-old female presenting to the emergency Department with complaints of increasing shortness of breath and cough. Patient was diagnosed with Covid to 7 days ago. She states her symptoms started as very mild, loss of taste and smell. She states 3 days ago she developed a cough, short of breath and the fever. Patient states she has been trying to take Tylenol for the fever, her last dose was yesterday. She does admit to history of asthma. She has been doing albuterol treatments at home with some mild improvement in her symptoms. She denies any anterior chest pain she does admit to some lower rib pain with radiation to both sides. She states she has been coughing a lot and then today started having a lot of nausea and vomiting. He does admit to history of anxiety and is very anxious about having this diagnosis. She denies any abdominal pain. She denies any Tylenol Motrin today. She denies being . She has no further complaints at this time. Patient did arrive febrile 100.2, tachycardia at 118, rest of vitals normal, 97% on room air. - Related Data Home Medications Medication Instructions Recorded Confirmed Montelukast [Singulair] 10 mg PO DAILY 09/13/16 05/14/20 Albuterol Nebulized [Ventolin 2.5 mg INHALATION RT-Q4H PRN 05/14/20 05/14/20 Nebulized] Citalopram Hydrobromide 30 mg PO HS 05/14/20 05/14/20 [Citalopram HBr] Loratadine [Claritin] 10 mg PO DAILY 05/14/20 05/14/20 Losartan Potassium [Cozaar] 50 mg PO HS 05/14/20 05/14/20 buPROPion XL [Wellbutrin Xl] 150 mg PO DAILY 05/14/20 05/14/20 hydroCHLOROthiazide 25 mg PO DAILY 05/14/20 05/14/20 Previous Rx's Medication Instructions Recorded Dexamethasone 6 mg PO DAILY 7 Days #7 tablet 05/14/20 Allergies Allergy/AdvReac Type Severity Reaction Status Date / Time amoxicillin Allergy Rash/Hives Verified 05/14/20 13:21 Review of Systems ROS Statement: Those systems with pertinent positive or pertinent negative responses have been documented in the HPI. ROS Other: All systems not noted in ROS Statement are negative. Past Medical History Past Medical History: Hypertension Additional Past Medical History / Comment(s): gestational diabetes History of Any Multi-Drug Resistant Organisms: None Reported Past Surgical History: Cholecystectomy, Tubal Ligation Additional Past Surgical History / Comment(s): Left knee surgery Past Psychological History: Anxiety, Depression Smoking Status: Never smoker Past Alcohol Use History: Rare Past Drug Use History: None Reported General Exam - General Exam Comments Initial Comments: GENERAL: Patient is well-developed and well-nourished. Patient is nontoxic and in mild distress, appears anxious. HEAD: Atraumatic, normocephalic. EYES: Pupils equal round and reactive to light, extraocular movements intact, sclera anicteric, conjunctiva are normal. Eyelids were unremarkable. ENT: TMs normal, nares patent, oropharynx clear without exudates. Moist mucous membranes. NECK: Normal range of motion, supple without lymphadenopathy or JVD. LUNGS: Unlabored respirations. Breath sounds clear to auscultation bilaterally and equal. No wheezes rales or rhonchi. HEART: Tachy rate and rhythm without murmurs, rubs or gallops. ABDOMEN: Soft, nontender, normoactive bowel sounds. No guarding, no rebound. No masses appreciated. : Deferred MUSCULOSKELETAL: Normal extremities with adequate strength and normal range of motion, no pitting or edema. No clubbing or cyanosis. NEUROLOGICAL: Patient is alert and oriented x 3. Motor and sensory are also intact. Cranial nerves II through XII grossly intact. Symmetrical smile. Normal speech, normal gait. PSYCH: Normal mood, normal affect. SKIN: Warm, Dry, normal turgor, no rashes or lesions noted. Limitations: no limitations Course Vital Signs 05/14/20 05/14/20 05/14/20 11:36 12:39 13:39 Temperature 100.2 F H 100 F H Pulse Rate 118 H 94 94 Respiratory 18 18 18 Rate Blood Pressure 114/79 127/84 127/80 O2 Sat by Pulse 97 98 98 Oximetry 05/14/20 14:50 Temperature 99.9 F H Pulse Rate 94 Respiratory 18 Rate Blood Pressure 117/81 O2 Sat by Pulse 98 Oximetry Medical Decision Making - Medical Decision Making Patient is a 39-year-old female, diagnosed with Covid 7 days ago, essentially with shortness of breath. She did arrive febrile 100.2, pulse is 118, 97% on room air. Labs show normal white count, lactic acid slightly elevated at 2.5, transaminitis, she states this is been going on for a while. CRP is elevated at 50. Chest x-ray shows a patchy right perihilar interstitial infiltrate. Daniel cruz was given some fluids, Zofran, dose of steroids as well as Tylenol. She reports improvement in her symptoms. She has been stable in ER. Her fever did decrease as well as heart rate, she remained stable on room air. She still has a few days left of her Z-Sreekanth, I will start her on steroids as well as albuterol inhaler. She is stable for discharge, she can follow up with her regular doctor. She is in agreement with this plan of care. Case discussed with Dr. Goode. - Lab Data Result diagrams: 05/14/20 12:46 05/14/20 12:46 Lab Results 05/14/20 05/14/20 05/14/20 Range/Units 12:46 12:46 12:46 WBC 4.7 (3.8-10.6) k/uL RBC 5.04 (3.80-5.40) m/uL Hgb 15.6 (11.4-16.0) gm/dL Hct 44.3 (34.0-46.0) % MCV 87.8 (80.0-100.0) fL MCH 30.9 (25.0-35.0) pg MCHC 35.2 (31.0-37.0) g/dL RDW 13.9 (11.5-15.5) % Plt Count 248 (150-450) k/uL MPV 8.0 Neutrophils % 72 % Lymphocytes % 21 % Monocytes % 5 % Eosinophils % 1 % Basophils % 1 % Neutrophils # 3.4 (1.3-7.7) k/uL Lymphocytes # 1.0 (1.0-4.8) k/uL Monocytes # 0.2 (0-1.0) k/uL Eosinophils # 0.0 (0-0.7) k/uL Basophils # 0.1 (0-0.2) k/uL Sodium 137 (137-145) mmol/L Potassium 3.5 (3.5-5.1) mmol/L Chloride 99 (98-107) mmol/L Carbon Dioxide 28 (22-30) mmol/L Anion Gap 10 mmol/L BUN 11 (7-17) mg/dL Creatinine 0.75 (0.52-1.04) mg/dL Est GFR (CKD-EPI)AfAm >90 (>60 ml/min/1.73 sqM) Est GFR (CKD-EPI)NonAf >90 (>60 ml/min/1.73 sqM) Glucose 131 H (74-99) mg/dL Lactic Ac Sepsis Rflx Plasma Lactic Acid Ole 2.5 H* (0.7-2.0) mmol/L Calcium 10.0 (8.4-10.2) mg/dL Total Bilirubin 0.8 (0.2-1.3) mg/dL AST 184 H (14-36) U/L ALT 235 H (4-34) U/L Alkaline Phosphatase 60 (38-126) U/L C-Reactive Protein 50.4 H (<10.0) mg/L Total Protein 8.3 H (6.3-8.2) g/dL Albumin 4.7 (3.5-5.0) g/dL 05/14/20 Range/Units 15:24 WBC (3.8-10.6) k/uL RBC (3.80-5.40) m/uL Hgb (11.4-16.0) gm/dL Hct (34.0-46.0) % MCV (80.0-100.0) fL MCH (25.0-35.0) pg MCHC (31.0-37.0) g/dL RDW (11.5-15.5) % Plt Count (150-450) k/uL MPV Neutrophils % % Lymphocytes % % Monocytes % % Eosinophils % % Basophils % % Neutrophils # (1.3-7.7) k/uL Lymphocytes # (1.0-4.8) k/uL Monocytes # (0-1.0) k/uL Eosinophils # (0-0.7) k/uL Basophils # (0-0.2) k/uL Sodium (137-145) mmol/L Potassium (3.5-5.1) mmol/L Chloride (98-107) mmol/L Carbon Dioxide (22-30) mmol/L Anion Gap mmol/L BUN (7-17) mg/dL Creatinine (0.52-1.04) mg/dL Est GFR (CKD-EPI)AfAm (>60 ml/min/1.73 sqM) Est GFR (CKD-EPI)NonAf (>60 ml/min/1.73 sqM) Glucose (74-99) mg/dL Lactic Ac Sepsis Rflx Y Plasma Lactic Acid Ole (0.7-2.0) mmol/L Calcium (8.4-10.2) mg/dL Total Bilirubin (0.2-1.3) mg/dL AST (14-36) U/L ALT (4-34) U/L Alkaline Phosphatase (38-126) U/L C-Reactive Protein (<10.0) mg/L Total Protein (6.3-8.2) g/dL Albumin (3.5-5.0) g/dL - EKG Data EKG Comments: Sinus rhythm with occasional PVCs. Nonspecific ST and T-wave abnormalities, no signs of acute process. Ventricular rate 98, IL of 148, QT 350. Disposition Clinical Impression: COVID-19, Nausea Disposition: HOME SELF-CARE Condition: Stable Instructions (If sedation given, give patient instructions): Viral Syndrome (ED) Additional Instructions: Please return to the Emergency Department if symptoms worsen or any other concer ns. Continue with her already prescribed antibiotics. Take steroids as discussed starting tomorrow. Indeed alternate between Tylenol and Motrin for fever control. Continue with albuterol nebulizer treatments at home as needed. Follow-up with your regular doctor. Prescriptions: Dexamethasone 6 mg PO DAILY 7 Days #7 tablet Is patient prescribed a controlled substance at d/c from ED?: No Referrals: Srinivas Ocampo MD [Primary Care Provider] - 1-2 days
--- NOTE | 2020-05-14 12:36 | XR ---
EXAMINATION TYPE: XR chest 1V portable DATE OF EXAM: 05/14/2020 COMPARISON: NONE HISTORY: Worsening cough TECHNIQUE: Single frontal view of the chest is obtained. FINDINGS: Patchy infrahilar interstitial changes. No pleural effusion or pneumothorax. No large area of consolidation. IMPRESSION: Patchy right perihilar interstitial infiltrate.
[2020-05-14 13:14] LABS: Basophils % (A) 1 %; Eosinophils % (A) 1 %; HCT 44.3 % (34.0-46.0); HGB 15.6 gm/dL (11.4-16.0); Lymphocytes % (A) 21 %; MCH 30.9 pg (25.0-35.0); MCHC 35.2 g/dL (31.0-37.0); MCV 87.8 fL (80.0-100.0); Monocytes % (A) 5 %; Neutrophils % (A) 72 %; Platelet Count 248 k/uL (150-450); RBC 5.04 m/uL (3.80-5.40); RDW 13.9 % (11.5-15.5); WBC 4.7 k/uL (3.8-10.6)
[2020-05-14 13:15] LABS: Basophils # (A) 0.1 k/uL (0-0.2); Monocytes # (A) 0.2 k/uL (0-1.0); Neutrophils # (A) 3.4 k/uL (1.3-7.7)
[2020-05-14 13:32] LABS: ALT 235 U/L (4-34); AST 184 U/L (14-36); African American GFR (CKD) >90 (>60 ml/min/1.73 sqM); Albumin 4.7 g/dL (3.5-5.0); Alkaline Phosphatase 60 U/L (38-126); Anion Gap 10 mmol/L; Blood Urea Nitrogen 11 mg/dL (7-17); C Reactive Protein 50.4 mg/L (<10.0); Carbon Dioxide 28 mmol/L (22-30); Chloride 99 mmol/L (98-107); Glucose 131 mg/dL (74-99); Non-African American GFR(CKD) >90 (>60 ml/min/1.73 sqM); Potassium 3.5 mmol/L (3.5-5.1); Sodium 137 mmol/L (137-145); Total Bilirubin 0.8 mg/dL (0.2-1.3); Total Protein 8.3 g/dL (6.3-8.2)
[2020-05-14 13:51] VITALS: PULSE 94
[2020-05-14] MEDS ORDERED: ONDANSETRON 4 MG ODT STARTER PACK 2 TAB BTL PO STA (14:09)
[2020-05-14 14:51] VITALS: BP 117/81
[2020-05-14 14:52] VITALS: TEMP 99.9
== END 2020-05-14 14:53 | disposition home or self-care (01) ==
LOC: EC 11:31
DX: U07.1 COVID-19 (principal); R11.0 Nausea; I10 Essential (primary) hypertension; F41.9 Anxiety disorder, unspecified; F32.9 Major depressive disorder, single episode, unspecified; J45.909 Unspecified asthma, uncomplicated; Z79.899 Other long term (current) drug therapy; Z79.52 Long term (current) use of systemic steroids; Z88.0 Allergy status to penicillin
CPT/HCPCS: 36415; 93005; 80053; 83605; 85025; 86140; 71045; 99285; 96374; 96375; 96361; J2930; J2405; S0119

== ENCOUNTER 2020-05-16 11:13 | Emergency (ER) | payer BC, OTHER ==
[2020-05-16] MEDS ORDERED: SODIUM CHLORIDE 0.9% 1,000 ML IV STA (11:38)
--- NOTE | 2020-05-16 11:55 | ED ---
General Adult HPI - General Chief complaint: Fever Stated complaint: Fever/Covid+ Time Seen by Provider: 05/16/20 11:27 Source: patient Mode of arrival: ambulatory Limitations: no limitations - History of Present Illness Initial comments: Patient is a 39-year-old female presents emergency Department with complaints of a fever. The patient states she was diagnosed with cold at 9 days ago and has been having a hard time controlling her fever over the past few days. Patient was seen in the ER 2 days ago for similar complaints. She did have a full wo rkup and chest x-ray which showed minimal findings and she was discharged on steroids. She was also continuing a Z-Sreekanth at the time. Patient states she last took ibuprofen this morning when her fever was 103. Patient states she has not taken any Tylenol today. She states she is overall feeling improvement in her symptoms. She's had no vomiting, no chest pain, she still feels short of breath when she does too much around her house. She denies any headaches. She states she has been able to eat and drink. She has no further complaints at this time. Upon arrival to the ER, her temperature is 99.1, rest of vitals are normal. - Related Data Home Medications Medication Instructions Recorded Confirmed Montelukast [Singulair] 10 mg PO DAILY 09/13/16 05/14/20 Albuterol Nebulized [Ventolin 2.5 mg INHALATION RT-Q4H PRN 05/14/20 05/14/20 Nebulized] Citalopram Hydrobromide 30 mg PO HS 05/14/20 05/14/20 [Citalopram HBr] Loratadine [Claritin] 10 mg PO DAILY 05/14/20 05/14/20 Losartan Potassium [Cozaar] 50 mg PO HS 05/14/20 05/14/20 buPROPion XL [Wellbutrin Xl] 150 mg PO DAILY 05/14/20 05/14/20 hydroCHLOROthiazide 25 mg PO DAILY 05/14/20 05/14/20 Previous Rx's Medication Instructions Recorded Dexamethasone 6 mg PO DAILY 7 Days #7 tablet 05/14/20 Allergies Allergy/AdvReac Type Severity Reaction Status Date / Time amoxicillin Allergy Rash/Hives Verified 05/14/20 13:21 Review of Systems ROS Statement: Those systems with pertinent positive or pertinent negative responses have been documented in the HPI. ROS Other: All systems not noted in ROS Statement are negative. Past Medical History Past Medical History: Hypertension Additional Past Medical History / Comment(s): gestational diabetes History of Any Multi-Drug Resistant Organisms: None Reported Past Surgical History: Cholecystectomy, Tubal Ligation Additional Past Surgical History / Comment(s): Left knee surgery Past Psychological History: Anxiety, Depression Smoking Status: Never smoker Past Alcohol Use History: Rare Past Drug Use History: None Reported General Exam - General Exam Comments Initial Comments: GENERAL: Patient is well-developed and well-nourished. Patient is nontoxic and in no acute distress. HEAD: Atraumatic, normocephalic. EYES: Pupils equal round and reactive to light, extraocular movements intact, sclera anicteric, conjunctiva are normal. Eyelids were unremarkable. ENT: TMs normal, nares patent, oropharynx clear without exudates. Moist mucous membranes. NECK: Normal range of motion, supple without lymphadenopathy or JVD. LUNGS: Unlabored respirations. Breath sounds clear to auscultation bilaterally and equal. No wheezes rales or rhonchi. HEART: Regular rate and rhythm without murmurs, rubs or gallops. ABDOMEN: Soft, nontender, normoactive bowel sounds. No guarding, no rebound. No masses appreciated. : Deferred MUSCULOSKELETAL: Normal extremities with adequate strength and normal range of motion, no pitting or edema. No clubbing or cyanosis. NEUROLOGICAL: Patient is alert and oriented x 3. Motor and sensory are also intact. Cranial nerves II through XII grossly intact. Symmetrical smile. Normal speech, normal gait. PSYCH: Normal mood, normal affect. SKIN: Warm, Dry, normal turgor, no rashes or lesions noted. Limitations: no limitations Course Vital Signs 05/16/20 05/16/20 05/16/20 11:23 11:58 12:16 Temperature 99.1 F 98.7 F Pulse Rate 104 H 86 Respiratory 20 20 18 Rate Blood Pressure 119/76 109/66 O2 Sat by Pulse 95 95 Oximetry Medical Decision Making - Medical Decision Making Patient is a 39-year-old female, here for fever for the last few days. She was seen in the ER 2 days ago for similar complaint. She was diagnosed with Covid 9 days ago, evaluated by labs and chest x-ray 2 days ago which showed minimal findings. She was discharged with steroids and she was finishing her Z-Sreekanth at the time. He is afebrile on arrival today. Her labs are unremarkable, as x-ray stable. He give patient some fluids. I discussed these findings with her. She is to continue with the dexamethasone and her albuterol nebulizer as needed for shortness of breath. Patient is to continue alternating Tylenol and Motrin for fever control. She can follow up with her PCP. She is in agreement with this plan of care and is stable for discharge. Case discussed with Dr. Goode. - Lab Data Result diagrams: 05/16/20 11:50 05/16/20 11:50 Lab Results 05/16/20 05/16/20 Range/Units 11:50 11:50 WBC 7.7 (3.8-10.6) k/uL RBC 4.48 (3.80-5.40) m/uL Hgb 13.8 (11.4-16.0) gm/dL Hct 39.7 (34.0-46.0) % MCV 88.7 (80.0-100.0) fL MCH 30.7 (25.0-35.0) pg MCHC 34.7 (31.0-37.0) g/dL RDW 13.9 (11.5-15.5) % Plt Count 222 (150-450) k/uL MPV 7.8 Neutrophils % 84 % Lymphocytes % 12 % Monocytes % 3 % Eosinophils % 0 % Basophils % 0 % Neutrophils # 6.5 (1.3-7.7) k/uL Lymphocytes # 0.9 L (1.0-4.8) k/uL Monocytes # 0.2 (0-1.0) k/uL Eosinophils # 0.0 (0-0.7) k/uL Basophils # 0.0 (0-0.2) k/uL Sodium 138 (137-145) mmol/L Potassium 3.4 L (3.5-5.1) mmol/L Chloride 101 (98-107) mmol/L Carbon Dioxide 30 (22-30) mmol/L Anion Gap 7 mmol/L BUN 15 (7-17) mg/dL Creatinine 0.77 (0.52-1.04) mg/dL Est GFR (CKD-EPI)AfAm >90 (>60 ml/min/1.73 sqM) Est GFR (CKD-EPI)NonAf >90 (>60 ml/min/1.73 sqM) Glucose 126 H (74-99) mg/dL Calcium 8.8 (8.4-10.2) mg/dL Total Bilirubin 0.7 (0.2-1.3) mg/dL AST 60 H (14-36) U/L ALT 120 H (4-34) U/L Alkaline Phosphatase 57 (38-126) U/L Total Protein 7.1 (6.3-8.2) g/dL Albumin 4.0 (3.5-5.0) g/dL Disposition Clinical Impression: COVID-19 Disposition: HOME SELF-CARE Condition: Stable Instructions (If sedation given, give patient instructions): Fever in Adults (ED) Additional Instructions: Please return to the Emergency Department if symptoms worsen or any other concerns. Alternate between Tylenol and Motrin every 4 hours. Continue to drink lots of fluids. Continue with already prescribed dexamethasone and albuterol nebulizer as needed. Follow up with her regular doctor. Is patient prescribed a controlled substance at d/c from ED?: No Referrals: Srinivas Ocampo MD [Primary Care Provider] - 1-2 days
[2020-05-16 11:57] LABS: Basophils % (A) 0 %; Eosinophils % (A) 0 %; HCT 39.7 % (34.0-46.0); HGB 13.8 gm/dL (11.4-16.0); Lymphocytes # (A) 0.9 k/uL (1.0-4.8); Lymphocytes % (A) 12 %; MCH 30.7 pg (25.0-35.0); MCHC 34.7 g/dL (31.0-37.0); MCV 88.7 fL (80.0-100.0); Mean Platelet Volume 7.8; Monocytes # (A) 0.2 k/uL (0-1.0); Monocytes % (A) 3 %; Neutrophils # (A) 6.5 k/uL (1.3-7.7); Neutrophils % (A) 84 %; Platelet Count 222 k/uL (150-450); RBC 4.48 m/uL (3.80-5.40); RDW 13.9 % (11.5-15.5); WBC 7.7 k/uL (3.8-10.6)
--- NOTE | 2020-05-16 12:02 | XR ---
EXAMINATION TYPE: XR chest 1V portable DATE OF EXAM: 05/16/2020 COMPARISON: 05/14/2020 HISTORY: Shortness of breath TECHNIQUE: Single frontal view of the chest is obtained. FINDINGS: Persistent patchy perihilar and lower lobe interstitial changes with no pleural effusion o r pneumothorax. Findings are stable. Heart size stable. No pneumothorax. IMPRESSION: Stable patchy right perihilar infiltrate.
[2020-05-16 12:07] LABS: ALT 120 U/L (4-34); AST 60 U/L (14-36); African American GFR (CKD) >90 (>60 ml/min/1.73 sqM); Alkaline Phosphatase 57 U/L (38-126); Anion Gap 7 mmol/L; Blood Urea Nitrogen 15 mg/dL (7-17); Calcium 8.8 mg/dL (8.4-10.2); Carbon Dioxide 30 mmol/L (22-30); Chloride 101 mmol/L (98-107); Glucose 126 mg/dL (74-99); Non-African American GFR(CKD) >90 (>60 ml/min/1.73 sqM); Potassium 3.4 mmol/L (3.5-5.1); Sodium 138 mmol/L (137-145); Total Bilirubin 0.7 mg/dL (0.2-1.3); Total Protein 7.1 g/dL (6.3-8.2)
[2020-05-16 12:17] VITALS: BP 109/66; PULSE 86; RESP 18; TEMP 98.7
== END 2020-05-16 12:45 | disposition home or self-care (01) ==
LOC: EC 11:13
DX: U07.1 COVID-19 (principal); I10 Essential (primary) hypertension; F32.9 Major depressive disorder, single episode, unspecified; F41.9 Anxiety disorder, unspecified; Z79.899 Other long term (current) drug therapy; Z90.49 Acquired absence of other specified parts of digestive tract; Z88.0 Allergy status to penicillin
CPT/HCPCS: 36415; 71045; 80053; 85025; 96360; 99283

== ENCOUNTER 2020-05-19 18:19 | Inpatient (IN) | payer BC, OTHER ==
--- NOTE | 2020-05-19 18:42 | ED ---
General Adult HPI - General Chief complaint: Shortness of Breath Stated complaint: COVID+/SOB Time Seen by Provider: 05/19/20 18:26 Source: patient Mode of arrival: ambulatory Limitations: no limitations - History of Present Illness Initial comments: Dictation was produced using [employer] dictation software. please excuse any grammatical, word or spelling errors. This patient was cared for during a federal and state declared state of emergency secondary to Covid 19 Chief Complaint: 39-year-old female with two-week diagnosis of Covid 19 presents with shortness of breath History of Present Illness: 39-year-old female she has past medical history of hypertension, presents to the emergency department for worsening dyspnea. Patient was diagnosed with Covid 19 2 weeks ago. She has come to the emergency department 2 times since being diagnosed and was sent home both times. States that she is at home when she became more short of breath. She is been taking Decadron at home. Patient denies any chest pain. The ROS documented in this emergency department record has been reviewed and confirmed by me. Those systems with pertinent positive or negative responses have been documented in the HPI. All other systems are other negative and/or noncontributory. PHYSICAL EXAM: General Impression: Alert and oriented x3, mildly dyspneic HEENT: Normocephalic atraumatic, extra-ocular movements intact, pupils equal and reactive to light bilaterally, mucous membranes moist. Cardiovascular: Heart regular rate and rhythm Chest: Able to complete full sentences, no retractions, no tachypnea Abdomen: abdomen soft, non-tender, non-distended, no organomegaly Musculoskeletal: Pulses present and equal in all extremities, no peripheral e amadeo Motor: no focal deficits noted Neurological: CN II-XII grossly intact, no focal motor or sensory deficits noted Skin: Intact with no visualized rashes Psych: Normal affect and mood ED course: 39-year-old female presents with worsening dyspnea. She was diagnosed with Covid 19 2 weeks ago. Vital signs upon arrival shows 89% on room air, temperature 99.1, rest of vital signs within acceptable limits. Patient appears mildly dyspneic at bedside. CBC unremarkable. D-dimer is elevated 1.02. Metabolic panel is unremarkable. Urine hCG is negative. CT angios the chest shows bilateral patchy groundglass opacities with Covid pneumonia. No acute PE. Case was discussed with Loida Chapman was went except patient's care for admission. Pulmonology be consulted. Patient is satting well and appears comfortable on supplemental oxygen. - Related Data Home Medications Medication Instructions Recorded Confirmed Albuterol Nebulized [Ventolin 2.5 mg INHALATION RT-Q4H PRN 05/14/20 05/19/20 Nebulized] Citalopram Hydrobromide 30 mg PO HS 05/14/20 05/19/20 [Citalopram HBr] Loratadine [Claritin] 10 mg PO DAILY 05/14/20 05/19/20 Losartan Potassium [Cozaar] 50 mg PO HS 05/14/20 05/19/20 buPROPion XL [Wellbutrin Xl] 150 mg PO DAILY 05/14/20 05/19/20 hydroCHLOROthiazide 25 mg PO DAILY 05/14/20 05/19/20 Previous Rx's Medication Instructions Recorded Dexamethasone 6 mg PO DAILY 7 Days #7 tablet 05/14/20 Allergies Allergy/AdvReac Type Severity Reaction Status Date / Time amoxicillin Allergy Rash/Hives Verified 05/19/20 19:31 Review of Systems ROS Statement: Those systems with pertinent positive or pertinent negative responses have been documented in the HPI. ROS Other: All systems not noted in ROS Statement are negative. Past Medical History Past Medical History: Hypertension Additional Past Medical History / Comment(s): gestational diabetes, covid 19 History of Any Multi-Drug Resistant Organisms: None Reported Past Surgical History: Cholecystectomy, Tubal Ligation Additional Past Surgical History / Comment(s): Left knee surgery, Past Psychological History: Anxiety, Depression Smoking Status: Never smoker Past Alcohol Use History: Rare Past Drug Use History: None Reported General Exam Limitations: no limitations Course Vital Signs 05/19/20 05/19/20 05/19/20 18:21 19:05 19:40 Temperature 99.1 F Pulse Rate 91 81 Respiratory 24 22 20 Rate Blood Pressure 118/78 116/84 O2 Sat by Pulse 89 L 94 L Oximetry Medical Decision Making - Lab Data Result diagrams: 05/19/20 19:15 05/19/20 19:15 Lab Results 05/19/20 05/19/20 05/19/20 Range/Units 19:15 19:15 19:15 WBC 4.5 (3.8-10.6) k/uL RBC 4.84 (3.80-5.40) m/uL Hgb 14.6 (11.4-16.0) gm/dL Hct 43.6 (34.0-46.0) % MCV 90.2 (80.0-100.0) fL MCH 30.2 (25.0-35.0) pg MCHC 33.5 (31.0-37.0) g/dL RDW 13.9 (11.5-15.5) % Plt Count 339 (150-450) k/uL MPV 8.0 Neutrophils % 73 % Lymphocytes % 17 % Monocytes % 5 % Eosinophils % 1 % Basophils % 1 % Neutrophils # 3.3 (1.3-7.7) k/uL Lymphocytes # 0.8 L (1.0-4.8) k/uL Monocytes # 0.2 (0-1.0) k/uL Eosinophils # 0.0 (0-0.7) k/uL Basophils # 0.0 (0-0.2) k/uL D-Dimer 1.02 H (<0.60) mg/L FEU Sodium 136 L (137-145) mmol/L Potassium 4.1 (3.5-5.1) mmol/L Chloride 103 (98-107) mmol/L Carbon Dioxide 25 (22-30) mmol/L Anion Gap 8 mmol/L BUN 18 H (7-17) mg/dL Creatinine 0.51 L (0.52-1.04) mg/dL Est GFR (CKD-EPI)AfAm >90 (>60 ml/min/1.73 sqM) Est GFR (CKD-EPI)NonAf >90 (>60 ml/min/1.73 sqM) Glucose 263 H (74-99) mg/dL Calcium 8.9 (8.4-10.2) mg/dL C-Reactive Protein 75.2 H (<10.0) mg/L Urine HCG, Qual (Not Detectd) 05/19/20 Range/Units 19:59 WBC (3.8-10.6) k/uL RBC (3.80-5.40) m/uL Hgb (11.4-16.0) gm/dL Hct (34.0-46.0) % MCV (80.0-100.0) fL MCH (25.0-35.0) pg MCHC (31.0-37.0) g/dL RDW (11.5-15.5) % Plt Count (150-450) k/uL MPV Neutrophils % % Lymphocytes % % Monocytes % % Eosinophils % % Basophils % % Neutrophils # (1.3-7.7) k/uL Lymphocytes # (1.0-4.8) k/uL Monocytes # (0-1.0) k/uL Eosinophils # (0-0.7) k/uL Basophils # (0-0.2) k/uL D-Dimer (<0.60) mg/L FEU Sodium (137-145) mmol/L Potassium (3.5-5.1) mmol/L Chloride (98-107) mmol/L Carbon Dioxide (22-30) mmol/L Anion Gap mmol/L BUN (7-17) mg/dL Creatinine (0.52-1.04) mg/dL Est GFR (CKD-EPI)AfAm (>60 ml/min/1.73 sqM) Est GFR (CKD-EPI)NonAf (>60 ml/min/1.73 sqM) Glucose (74-99) mg/dL Calcium (8.4-10.2) mg/dL C-Reactive Protein (<10.0) mg/L Urine HCG, Qual Not Detected (Not Detectd) Disposition Clinical Impression: COVID-19 Disposition: ADMITTED IP TO THIS HOSP Condition: Fair Referrals: Srinivas Ocampo MD [Primary Care Provider] - 1-2 days Decision Time: 22:16
--- NOTE | 2020-05-19 19:24 | XR ---
EXAMINATION TYPE: XR chest 1V portable DATE OF EXAM: 05/19/2020 COMPARISON: NONE HISTORY: Cough TECHNIQUE: Single frontal view of the chest is obtained. FINDINGS: There is moderate right basilar and left upper lung opacities. No pleural effusion, or pne umothorax seen. The cardiac silhouette size is within normal limits. The osseous structures are in tact. IMPRESSION: Bilateral infiltrates.
[2020-05-19 19:35] LABS: Basophils % (A) 1 %; Eosinophils % (A) 1 %; HCT 43.6 % (34.0-46.0); HGB 14.6 gm/dL (11.4-16.0); Lymphocytes # (A) 0.8 k/uL (1.0-4.8); Lymphocytes % (A) 17 %; MCH 30.2 pg (25.0-35.0); MCHC 33.5 g/dL (31.0-37.0); MCV 90.2 fL (80.0-100.0); Monocytes # (A) 0.2 k/uL (0-1.0); Monocytes % (A) 5 %; Neutrophils # (A) 3.3 k/uL (1.3-7.7); Neutrophils % (A) 73 %; Platelet Count 339 k/uL (150-450); RBC 4.84 m/uL (3.80-5.40); RDW 13.9 % (11.5-15.5); WBC 4.5 k/uL (3.8-10.6)
[2020-05-19 19:46] LABS: African American GFR (CKD) >90 (>60 ml/min/1.73 sqM); Anion Gap 8 mmol/L; Blood Urea Nitrogen 18 mg/dL (7-17); C Reactive Protein 75.2 mg/L (<10.0); Calcium 8.9 mg/dL (8.4-10.2); Carbon Dioxide 25 mmol/L (22-30); Chloride 103 mmol/L (98-107); Glucose 263 mg/dL (74-99); Non-African American GFR(CKD) >90 (>60 ml/min/1.73 sqM); Potassium 4.1 mmol/L (3.5-5.1); Sodium 136 mmol/L (137-145)
[2020-05-19] MEDS ORDERED: ACETAMINOPHEN TAB 325 MG TAB PO PRN (21:54)
[2020-05-19] MEDS ORDERED: NALOXONE 0.4 MG/ML 1 ML VIAL IV PRN (21:54)
--- NOTE | 2020-05-19 22:06 | CT ---
EXAMINATION TYPE: CT angio chest DATE OF EXAM: 05/19/2020 9:39 PM COMPARISON: Same-day radiograph. CT 07/14/2016. HISTORY: positive d dimer positive covid CT DLP: 854.9 mGycm Automated exposure control for dose reduction was used. CONTRAST: CTA scan of the thorax is performed with IV Contrast, patient injected with 100 mL of Isovue 370, pul monary embolism protocol. MIP images are created and reviewed. FINDINGS: LUNGS: There is bilateral diffuse moderate patchy ground glass opacities. There is no pleural effus ion or pneumothorax seen. The tracheobronchial tree is patent. MEDIASTINUM: There is satisfactory enhancement of the pulmonary artery and its branches, there is no CT evidence for pulmonary embolism. There are no greater than 1 cm hilar or mediastinal lymph nodes. No pericardial effusion is seen. OTHER: No additional significant abnormality is seen. Hepatic steatosis and cholecystectomy noted. IMPRESSION: BILATERAL PATCHY GROUNDGLASS OPACITIES, CONSISTENT WITH COVID PNEUMONIA. NO ACUTE PE.
[2020-05-20] MEDS ORDERED: ONDANSETRON 4 MG/2 ML VIAL IVP PRN (03:55)
[2020-05-20] MEDS ORDERED: hydroCHLOROthiazide 25 MG TAB PO SCH (09:15)
[2020-05-20] MEDS: LORATADINE 10 MG TAB PO SCH (10:22)
[2020-05-20] MEDS: buPROPion XL 150 MG TAB.ER.24H PO SCH (10:22)
[2020-05-20] MEDS: dexAMETHasone 2 MG TAB PO SCH (10:22)
[2020-05-20] MEDS ORDERED: ALPRAZolam 0.5 MG TAB PO PRN (14:58)
--- NOTE | 2020-05-20 17:07 | P.CNPUL ---
History of Present Illness Consult date: 05/20/20 Requesting physician: Aleta Chanel Reason for consult: dyspnea, cough, asthma, hypoxemia, abnormal CXR/CT Chief complaint: Shortness of breath History of present illness: 39-year-old female, who is been in the hospital's emergency room now 3 times. She was diagnosed recently with COVID 19. The patient states that finally, her breathing and her coughing and her tightness in her chest got so bad that she had to come back in and this time she was admitted to the hospital. Her chest x-ray was abnormal as was her computed tomography scan. This showed bilateral patchy groundglass opacities consistent with Covid 19 pneumonia. The patient's currently on a couple liters of oxygen. We recommend vitamin C, vitamin D3, zinc, and corticosteroids, as well as Lovenox. She is beyond the window for remdesivir. She has a history of mild seasonal asthma, as well as environmental ALLERGIES, and essential hypertension. She is a lifelong nonsmoker. Her asthma was never really been that serious. She has been taking corticosteroids at home. Review of Systems REVIEW OF SYSTEMS: CONSTITUTIONAL: [Negative.] NEUROLOGIC: [ Negative.] HEENT: [ Negative.] CARDIAC: [Negative.] PULMONARY: Shortness of breath, chest tightness, and cough. GI: [Negative.] : [Negative.] RHEUMATOLOGIC: [ Negative.] IMMUNOLOGIC: [ Negative.] ENDOCRINE: [Negative. ] DERMATOLOGIC: [Negative.] Past Medical History Past Medical History: Hypertension Additional Past Medical History / Comment(s): gestational diabetes, covid 19 History of Any Multi-Drug Resistant Organisms: None Reported Past Surgical History: Cholecystectomy, Tubal Ligation Additional Past Surgical History / Comment(s): Left knee surgery, L wrist cyst removal Past Anesthesia/Blood Transfusion Reactions: Postoperative Nausea & Vomiting (PONV) Past Psychological History: Anxiety, Depression Smoking Status: Never smoker Past Alcohol Use History: Rare Past Drug Use History: None Reported - Past Family History Father Family Medical History: Coronary Artery Disease (CAD), Hypertension Additional Family Medical History / Comment(s): 2x bypass Mother Family Medical History: Asthma, Hypertension Medications and Allergies Home Medications Medication Instructions Recorded Confirmed Type Albuterol Nebulized [Ventolin 2.5 mg INHALATION RT-Q4H PRN 05/14/20 05/19/20 History Nebulized] Citalopram Hydrobromide 30 mg PO HS 05/14/20 05/19/20 History [Citalopram HBr] Dexamethasone 6 mg PO DAILY 7 Days #7 tablet 05/14/20 05/19/20 Rx Loratadine [Claritin] 10 mg PO DAILY 05/14/20 05/19/20 History Losartan Potassium [Cozaar] 50 mg PO HS 05/14/20 05/19/20 History buPROPion XL [Wellbutrin Xl] 150 mg PO DAILY 05/14/20 05/19/20 History hydroCHLOROthiazide 25 mg PO DAILY 05/14/20 05/19/20 History Allergies Allergy/AdvReac Type Severity Reaction Status Date / Time amoxicillin Allergy Rash/Hives Verified 05/19/20 19:31 morphine AdvReac Nausea & Verified 05/20/20 03:47 Vomiting Physical Exam Osteopathic Statement: *. No significant issues noted on an osteopathic structural exam other than those noted in the History and Physical/Consult. Vitals: Vital Signs Temp Pulse Pulse Resp BP BP Pulse Ox 05/20/20 15:38 98.4 F 80 16 116/77 94 L 05/20/20 10:07 98.1 F 66 16 125/79 94 L 05/20/20 05:00 97.5 F L 70 16 131/86 94 L 05/19/20 22:45 98.3 F 71 20 148/87 94 L 05/19/20 22:22 18 05/19/20 19:40 81 20 116/84 94 L 05/19/20 19:05 22 05/19/20 18:21 99.1 F 91 24 118/78 89 L Intake and Output 05/20/20 05/20/20 05/20/20 06:59 14:59 22:59 Intake Total 590 Balance 590 Intake: Oral 590 Other: Voiding Method Toilet # Voids 2 No acute distress, oriented 3. No ana respiratory distress. HEENT examination is grossly unremarkable. Mucous membranes are moist. No oral lesions. Neck supple. Full range of motion. No adenopathy thyromegaly or neck vein distention. Cardiovascular examination reveals regular rhythm rate. S1-S2 normal. No S3 or S4. No discernible murmur noted. Heart rate is 80 bpm. Lungs reveal coarse bilateral rhonchi. She coughs on deep inspiration. No wheezes or crackles are noted. Breath sounds are equal bilaterally. Abdomen soft bowel sounds are heard. No masses or tenderness. Extremities are intact. No cyanosis clubbing or edema. Skin is without rash or lesion. Neurologic examination is brief but nonfocal. Results - Laboratory Findings CBC and BMP: 05/19/20 19:15 05/19/20 19:15 PT/INR, D-dimer D-Dimer 1.02 mg/L FEU (<0.60) H 05/19/20 19:15 Abnormal lab findings: Abnormal Labs 05/19/20 05/19/20 05/19/20 19:15 19:15 19:15 Lymphocytes # 0.8 L D-Dimer 1.02 H Sodium 136 L BUN 18 H Creatinine 0.51 L Glucose 263 H C-Reactive Protein 75.2 H - Diagnostic Findings Chest x-ray: image reviewed CT scan - chest: image reviewed Assessment and Plan Assessment: Acute hypoxemic respiratory failure, secondary to COVID 19 pneumonia. History of mild seasonal asthma. History of hypertension. Obesity. Plan: Plan dated 05/20/2020. We will recommend Decadron 6 mg a day for this patient. In addition, we recommended oxygen to maintain saturations at 90% or higher. In addition, the patient will get vitamin C, vitamin D3, and zinc. Also, the patient will get Lovenox. Additional recommendations and suggestions are forthcoming. She is beyond the window for the antiviral agent remdesivir. We will continue to fo llow. Prognosis is guarded. Time with Patient: Greater than 30
[2020-05-20] MEDS: CHOLECALCIFEROL 1,000 UNIT TAB PO SCH (17:50)
[2020-05-20] MEDS: ENOXAPARIN 40 MG/0.4 ML SYRINGE SQ SCH (17:50)
[2020-05-20] MEDS: ZINC SULFATE 220 MG CAP PO SCH (17:50)
[2020-05-20] MEDS: CITALOPRAM HYDROBROMIDE 10 MG TAB PO SCH (21:09)
[2020-05-20] MEDS: LOSARTAN 50 MG TAB PO SCH (21:10)
[2020-05-20] MEDS: MELATONIN 5 MG TABLET PO SCH (21:10)
[2020-05-20] MEDS: ASCORBIC ACID 500 MG TAB PO SCH (21:10)
--- NOTE | 2020-05-20 23:28 | P.HPIM ---
History of Present Illness H&P Date: 05/20/20 Patient is a 39-year-old female with a known history of hypertension, anxiety/depression presents to ER with complaints of worsening shortness of breath. Patient initially was seen in the ER on 05/07/2020 with a loss of taste, sore throat and fatigue. Patient was tested positive on 05/07/2020. Patient was sent home with symptomatic management. Patient has been getting worse and was seen in the ER on 05/16/2020. Chest x-ray showed minimal findings and she was discharged home on oral steroids. Patient was also continuing Z-Sreekanth at that time given by her primary care physician. Denied any complaints of chest pain. On admission blood pressure was 118/78, respiration 24 and pulse ox 89% on room air. Laboratory data showed D-dimer 1.02, sodium 136, BUN 18 and creatinine 0.51 Blood sugar is [address] angiogram showed bilateral patchy groundglass opacities consistent with Covid pneumonia. Review of Systems Constitutional: Patient did have subjective fevers and no chills. Generalized weakness and malaise. . Abdomen: Patient denied nausea vomiting and diarrhea and abdominal pain. Cardiovascular: Patient denies any chest pain or short of breath no palpitations. Respiratory: Patient does have cough with the sputum production and shortness of breath Neurologic: Patient denied any numbness or tingling headache. Musculoskeletal: Patient denies any complaints of joint swelling or deformity. Skin: Negative Psychiatric: Negative Endocrine: No heat or cold intolerance. No recent weight gain. Genitourinary: No dysuria or hematuria. All other 14 point ROS negative except the above Past Medical History Past Medical History: Hypertension Additional Past Medical History / Comment(s): gestational diabetes, covid 19 History of Any Multi-Drug Resistant Organisms: None Reported Past Surgical History: Cholecystectomy, Tubal Ligation Additional Past Surgical History / Comment(s): Left knee surgery, L wrist cyst removal Past Anesthesia/Blood Transfusion Reactions: Postoperative Nausea & Vomiting (PONV) Past Psychological History: Anxiety, Depression Smoking Status: Never smoker Past Alcohol Use History: Rare Past Drug Use History: None Reported - Past Family History Father Family Medical History: Coronary Artery Disease (CAD), Hypertension Additional Family Medical History / Comment(s): 2x bypass Mother Family Medical History: Asthma, Hypertension Medications and Allergies Home Medications Medication Instructions Recorded Confirmed Type Albuterol Nebulized [Ventolin 2.5 mg INHALATION RT-Q4H PRN 05/14/20 05/19/20 History Nebulized] Citalopram Hydrobromide 30 mg PO HS 05/14/20 05/19/20 History [Citalopram HBr] Dexamethasone 6 mg PO DAILY 7 Days #7 tablet 05/14/20 05/19/20 Rx Loratadine [Claritin] 10 mg PO DAILY 05/14/20 05/19/20 History Losartan Potassium [Cozaar] 50 mg PO HS 05/14/20 05/19/20 History buPROPion XL [Wellbutrin Xl] 150 mg PO DAILY 05/14/20 05/19/20 History hydroCHLOROthiazide 25 mg PO DAILY 05/14/20 05/19/20 History Allergies Allergy/AdvReac Type Severity Reaction Status Date / Time amoxicillin Allergy Rash/Hives Verified 05/19/20 19:31 morphine AdvReac Nausea & Verified 05/20/20 03:47 Vomiting Physical Exam Vitals: Vital Signs Temp Pulse Pulse Resp BP BP Pulse Ox 05/20/20 05:00 97.5 F L 70 16 131/86 94 L 05/19/20 22:45 98.3 F 71 20 148/87 94 L 05/19/20 22:22 18 05/19/20 19:40 81 20 116/84 94 L 05/19/20 19:05 22 05/19/20 18:21 99.1 F 91 24 118/78 89 L Intake and Output 05/19/20 05/20/20 05/20/20 22:59 06:59 14:59 Intake Total 590 Balance 590 Intake: Oral 590 Other: Voiding Method Toilet # Voids 2 Weight 99.337 kg PHYSICAL EXAMINATION: Patient is lying in the bed comfortably, no acute distress, awake alert and oriented.. HEENT: Normocephalic. Neck is supple. Pupils reactive. Nostrils clear. Oral cav ity is moist. Ears reveal no drainage. Neck reveals no JVD, carotid bruits, or thyromegaly. CHEST EXAMINATION: Trachea is central. Symmetrical expansion.Scattered coarse breath sounds. No wheezing. CARDIAC: Normal S1, S2 with no gallops. No murmurs ABDOMEN: Soft. Bowel sounds normal. No organomegaly. No abdominal bruits. Extremities: reveal no edema. No clubbing or cyanosis Neurologically awake, alert, oriented x3 with well-coordinated movements. No focal deficits noted Skin: No rash or skin lesions. Psychiatric: Coperative. Nonsuicidal, anxious Musculoskeletal: No joint swelling or deformity. Normal range of motion. Results CBC & Chem 7: 05/19/20 19:15 05/19/20 19:15 Labs: Abnormal Lab Results - Last 24 Hours (Table) 05/19/20 05/19/20 05/19/20 Range/Units 19:15 19:15 19:15 Lymphocytes # 0.8 L (1.0-4.8) k/uL D-Dimer 1.02 H (<0.60) mg/L FEU Sodium 136 L (137-145) mmol/L BUN 18 H (7-17) mg/dL Creatinine 0.51 L (0.52-1.04) mg/dL Glucose 263 H (74-99) mg/dL C-Reactive Protein 75.2 H (<10.0) mg/L Thrombosis Risk Factor Assmnt - Choose All That Apply Any of the Below Risk Factors Present?: Yes Each Factor Represents 1 point: Obesity (BMI >25), Serious lung disease incl. pneumonia (< 1month) Other Risk Factors: No Other congenital or acquired thrombophilia - If yes, enter type in comment: No Thrombosis Risk Factor Assessment Total Risk Factor Score: 2 Thrombosis Risk Factor Assessment Level: Low Risk Assessment and Plan Assessment: Acute COVID-19 pneumonia. Acute hypoxic respiratory failure secondary to COVID- 19 pneumonia Hypertension Anxiety/depression History of gestational diabetes DVT prophylaxis with Lovenox. Plan: Patient will be continued on breathing treatments as needed. Continue with home blood pressure medication in the form of losartan and hydrochlorothiazide will be held at this time. Continue with oxygen supplementation and titrate down FiO2. Anticoagulation and vitamin supplementation. Pulmonary was consulted. Further recommendations based on the clinical course.
[2020-05-21 00:02] LABS: Glucose,Whole Blood 185 mg/dL (75-99)
[2020-05-21 07:16] LABS: Glucose,Whole Blood 113 mg/dL (75-99)
[2020-05-21] MEDS: INSULIN ASPART (NovoLOG) 100 UNIT/ML VIAL SQ SCH ×4 (07:24→21:58)
[2020-05-21] MEDS: ZINC SULFATE 220 MG CAP PO SCH (08:23)
[2020-05-21] MEDS: ASCORBIC ACID 500 MG TAB PO SCH ×2 (08:23→21:58)
[2020-05-21] MEDS: ENOXAPARIN 40 MG/0.4 ML SYRINGE SQ SCH (08:23)
[2020-05-21] MEDS: dexAMETHasone 2 MG TAB PO SCH (08:24)
[2020-05-21] MEDS: CHOLECALCIFEROL 1,000 UNIT TAB PO SCH (08:24)
[2020-05-21] MEDS: buPROPion XL 150 MG TAB.ER.24H PO SCH (08:24)
[2020-05-21] MEDS: LORATADINE 10 MG TAB PO SCH (08:27)
[2020-05-21 10:59] LABS: Glucose,Whole Blood 138 mg/dL (75-99)
--- NOTE | 2020-05-21 14:51 | P.PN ---
Subjective Progress Note Date: 05/21/20 Principal diagnosis: Acute hypoxemic respiratory failure secondary to CoVID 19 pneumonia 39-year-old female, who is been in the hospital's emergency room now 3 times. She was diagnosed recently with COVID 19. The patient states that finally, her breathing and her coughing and her tightness in her chest got so bad that she had to come back in and this time she was admitted to the hospital. Her chest x-ray was abnormal as was her computed tomography scan. This showed bilateral patchy groundglass opacities consistent with Covid 19 pneumonia. The patient's currently on a couple liters of oxygen. We recommend vitamin C, vitamin D3, zinc, and corticosteroids, as well as Lovenox. She is beyond the window for remdesivir. She has a history of mild seasonal asthma, as well as environmental ALLERGIES, and essential hypertension. She is a lifelong nonsmoker. Her asthma was never really been that serious. She has been taking corticosteroids at home. The patient is seen today 05/21/2020 and follow-up on the regular medical floor. She is awake and alert in no acute distress. Currently maintaining O2 saturations in the 90s on 1 L of oxygen. Afebrile. Hemodynamically stable. Blood glucose 138. Continued on dexamethasone, Lovenox, troponin, vitamin supplements. Objective - Vital Signs Vital signs: Vital Signs Temp 97.8 F 05/21/20 11:00 Pulse 70 05/21/20 11:00 Resp 17 05/21/20 11:00 BP 102/66 05/21/20 11:00 Pulse Ox 95 05/21/20 11:00 Intake & Output 05/20/20 05/21/20 05/21/20 18:59 06:59 18:59 Intake Total 880 Balance 880 Intake: Oral 880 Other: Voiding Method Toilet # Voids 3 1 - Exam GENERAL EXAM: Alert, active, pleasant 39-year-old female patient, on 1 L/m per nasal cannula comfortable in no apparent distress. HEAD: Normocephalic. EYES: Normal reaction of pupils, equal size. NOSE: Clear with pink turbinates. THROAT: No erythema or exudates. NECK: No masses, no JVD. CHEST: No chest wall deformity. LUNGS: Equal air entry with basilar crackles. CVS: S1 and S2 normal with no audible murmur, regular rhythm. ABDOMEN: No hepatosplenomegaly, normal bowel sounds, no guarding or rigidity. SPINE: No scoliosis or deformity SKIN: No rashes CENTRAL NERVOUS SYSTEM: No focal deficits, tone is normal in all 4 extremities. EXTREMITIES: There is no peripheral edema. No clubbing, no cyanosis. Peripheral pulses are intact. - Labs CBC & Chem 7: 05/19/20 19:15 05/19/20 19:15 Labs: Abnormal Lab Results - Last 24 Hours (Table) 05/20/20 05/21/20 05/21/20 Range/Units 23:59 07:14 10:58 POC Glucose (mg/dL) 185 H 113 H 138 H (75-99) mg/dL Assessment and Plan Assessment: 1 Acute hypoxemic respiratory failure secondary to chronic 19 pneumonia 2 History of mild intermittent chronic seasonal ALLERGIES 3 Hypertension 4 Obesity Plan: The patient was seen and evaluated by Dr. Bell Titrate down the FiO2 as tolerated Continue the current treatment plan Increase her activity as tolerated Probable discharge in the a.m. I, the cosigning physician, performed a history & physical examination of the patient. Lungs sounds with bibasilar crackles. Maintaining good O2 saturations in the 90s on 1 L/m per nasal cannula. I discussed the assessment and plan of care with my nurse practitioner, Brigid Manrique. I attest to the above note as dictated by her.
[2020-05-21 16:21] VITALS: TEMP 97.9
[2020-05-21 17:22] LABS: Glucose,Whole Blood 146 mg/dL (75-99)
[2020-05-21 19:54] LABS: Glucose,Whole Blood 210 mg/dL (75-99)
[2020-05-21] MEDS: MELATONIN 5 MG TABLET PO SCH (21:58)
[2020-05-21] MEDS: CITALOPRAM HYDROBROMIDE 10 MG TAB PO SCH (21:58)
[2020-05-21] MEDS: LOSARTAN 50 MG TAB PO SCH (21:58)
[2020-05-22 04:08] VITALS: BP 131/73; PULSE 68
[2020-05-22 07:50] LABS: Glucose,Whole Blood 95 mg/dL (75-99)
[2020-05-22 07:55] VITALS: RESP 18
[2020-05-22] MEDS: ZINC SULFATE 220 MG CAP PO SCH (08:14)
[2020-05-22] MEDS: dexAMETHasone 2 MG TAB PO SCH (08:14)
[2020-05-22] MEDS: ENOXAPARIN 40 MG/0.4 ML SYRINGE SQ SCH (08:14)
[2020-05-22] MEDS: LORATADINE 10 MG TAB PO SCH (08:14)
[2020-05-22] MEDS: CHOLECALCIFEROL 1,000 UNIT TAB PO SCH (08:15)
[2020-05-22] MEDS: ASCORBIC ACID 500 MG TAB PO SCH (08:15)
[2020-05-22] MEDS: buPROPion XL 150 MG TAB.ER.24H PO SCH (08:17)
[2020-05-22] MEDS: INSULIN ASPART (NovoLOG) 100 UNIT/ML VIAL SQ SCH (08:17)
--- NOTE | 2020-05-22 10:53 | P.PN ---
Subjective Progress Note Date: 05/21/20 Principal diagnosis: Acute covid 19 pneumonia Patient is a 39-year-old female with a known history of hypertension, anxiety/depression presents to ER with complaints of worsening shortness of breath. Patient initially was seen in the ER on 05/07/2020 with a loss of taste, sore throat and fatigue. Patient was tested positive on 05/07/2020. Patient was sent home with symptomatic management. Patient has been getting worse and was seen in the ER on 05/16/2020. Chest x-ray showed minimal findings and she was discharged home on oral steroids. Patient was also continuing Z-Sreekanth at that time given by her primary care physician. Denied any complaints of chest pain. On admission blood pressure was 118/78, respiration 24 and pulse ox 89% on room air. Laboratory data showed D-dimer 1.02, sodium 136, BUN 18 and creatinine 0.51 Blood sugar is [address] angiogram showed bilateral patchy groundglass opacities consistent with Covid pneumonia. 05/21/2020 Patient is currently resting in the bed comfortably. FiO2 titrate down to 1 L oxygen via nasal cannula. Breathing status is getting better. Currently being continued on Lovenox and Decadron. Pulmonary is on board. Anticipate discharge in next 24 hours. Current medications reviewed. Objective - Vital Signs Vital signs: Vital Signs Temp 97.9 F 05/22/20 04:08 Pulse 68 05/22/20 04:08 Resp 18 05/22/20 07:49 BP 131/73 05/22/20 04:08 Pulse Ox 95 05/22/20 04:08 Intake & Output 05/21/20 05/22/20 05/22/20 18:59 06:59 18:59 Intake Total 950 Balance 950 Intake: Oral 950 Other: Voiding Method Toilet # Voids 2 3 - Exam PHYSICAL EXAMINATION: Patient is lying in the bed comfortably, no acute distress, awake alert and oriented.. HEENT: Normocephalic. Neck is supple. Pupils reactive. Nostrils clear. Oral cavity is moist. Ears reveal no drainage. Neck reveals no JVD, carotid bruits, or thyromegaly. CHEST EXAMINATION: Trachea is central. Symmetrical expansion. Lung aguilera clear to auscultation and percussion. CARDIAC: Normal S1, S2 with no gallops. No murmurs ABDOMEN: Soft. Bowel sounds normal. No organomegaly. No abdominal bruits. Extremities: reveal no edema. No clubbing or cyanosis Neurologically awake, alert, oriented x3 with well-coordinated movements. No focal deficits noted Skin: No rash or skin lesions. Psychiatric: Coperative. Nonsuicidal Musculoskeletal: No joint swelling or deformity. Normal range of motion. - Labs CBC & Chem 7: 05/19/20 19:15 05/19/20 19:15 Labs: Abnormal Lab Results - Last 24 Hours (Table) 05/21/20 05/21/20 05/21/20 Range/Units 10:58 17:21 19:53 POC Glucose (mg/dL) 138 H 146 H 210 H (75-99) mg/dL Assessment and Plan Assessment: Acute COVID-19 pneumonia. Acute hypoxic respiratory failure secondary to COVID- 19 pneumonia Hypertension Anxiety/depression History of gestational diabetes DVT prophylaxis with Lovenox. Plan: Patient will be continued on breathing treatments as needed. Continue with home blood pressure medication in the form of losartan and hydrochlorothiazide will be held at this time. Continue with oxygen supplementation and titrate down FiO2. Anticoagulation and vitamin supplementation. Pulmonary is following. Further recommendations based on the clinical course. Time with Patient: Greater than 30
--- NOTE | 2020-05-22 13:46 | P.PN ---
Subjective Progress Note Date: 05/22/20 Principal diagnosis: Acute hypoxemic respiratory failure secondary to CoVID 19 pneumonia 39-year-old female, who is been in the hospital's emergency room now 3 times. She was diagnosed recently with COVID 19. The patient states that finally, her breathing and her coughing and her tightness in her chest got so bad that she had to come back in and this time she was admitted to the hospital. Her chest x-ray was abnormal as was her computed tomography scan. This showed bilateral patchy groundglass opacities consistent with Covid 19 pneumonia. The patient's currently on a couple liters of oxygen. We recommend vitamin C, vitamin D3, zinc, and corticosteroids, as well as Lovenox. She is beyond the window for remdesivir. She has a history of mild seasonal asthma, as well as environmental ALLERGIES, and essential hypertension. She is a lifelong nonsmoker. Her asthma was never really been that serious. She has been taking corticosteroids at home. The patient is seen today 05/21/2020 and follow-up on the regular medical floor. She is awake and alert in no acute distress. Currently maintaining O2 saturations in the 90s on 1 L of oxygen. Afebrile. Hemodynamically stable. Blood glucose 138. Continued on dexamethasone, Lovenox, troponin, vitamin supplements. The patient is seen today 05/22/2020 follow-up on the regular medical floor. She is sitting up at the bedside. Awake and alert in no acute distress. Maintaining O2 saturation in the mid 90s on room air. She's been afebrile. Hemodynamically stable. Blood glucose 95. Continued on Lovenox, dexamethasone, melatonin, vitamin supplements. Objective - Vital Signs Vital signs: Vital Signs Temp 97.9 F 05/22/20 04:08 Pulse 68 05/22/20 04:08 Resp 18 05/22/20 07:49 BP 131/73 05/22/20 04:08 Pulse Ox 95 05/22/20 04:08 Intake & Output 05/21/20 05/22/20 05/22/20 18:59 06:59 18:59 Intake Total 950 Balance 950 Intake: Oral 950 Other: Voiding Method Toilet # Voids 2 3 - Exam GENERAL EXAM: Alert, active, pleasant 39-year-old female patient, on room air, comfortable in no apparent distress. HEAD: Normocephalic. EYES: Normal reaction of pupils, equal size. NOSE: Clear with pink turbinates. THROAT: No erythema or exudates. NECK: No masses, no JVD. CHEST: No chest wall deformity. LUNGS: Equal air entry with basilar crackles. CVS: S1 and S2 normal with no audible murmur, regular rhythm. ABDOMEN: No hepatosplenomegaly, normal bowel sounds, no guarding or rigidity. SPINE: No scoliosis or deformity SKIN: No rashes CENTRAL NERVOUS SYSTEM: No focal deficits, tone is normal in all 4 extremities. EXTREMITIES: There is no peripheral edema. No clubbing, no cyanosis. Peripheral pulses are intact. - Labs CBC & Chem 7: 05/19/20 19:15 05/19/20 19:15 Labs: Abnormal Lab Results - Last 24 Hours (Table) 05/21/20 05/21/20 Range/Units 17:21 19:53 POC Glucose (mg/dL) 146 H 210 H (75-99) mg/dL Assessment and Plan Assessment: 1 Acute hypoxemic respiratory failure secondary to CoVID 19 pneumonia 2 History of mild intermittent chronic seasonal ALLERGIES 3 Hypertension 4 Obesity Plan: The patient was seen and evaluated by Dr. Ray Patton and on room air Cleared for discharge from the pulmonary standpoint Follow-up with her PCP I, the cosigning physician, performed a history & physical examination of the patient. Lungs sounds with bibasilar crackles. Maintaining good O2 saturations in the 90s on room air. I discussed the assessment and plan of care with my nurse practitioner, Brigid Manrique. I attest to the above note as dictated by her.
== END 2020-05-22 12:41 | disposition home or self-care (01) | DRG 177 ==
LOC: EC 18:19 → 6NMEDSUR 21:54
PROVIDERS: ADMIT Hospitalist; ATTEND Hospitalist
DX: U07.1 COVID-19 (principal); J12.82 Pneumonia due to coronavirus disease 2019; J96.01 Acute respiratory failure with hypoxia; I10 Essential (primary) hypertension; E66.9 Obesity, unspecified; F41.9 Anxiety disorder, unspecified; F32.9 Major depressive disorder, single episode, unspecified; J45.909 Unspecified asthma, uncomplicated; Z86.32 Personal history of gestational diabetes; Z79.899 Other long term (current) drug therapy; Z88.0 Allergy status to penicillin; Z90.49 Acquired absence of other specified parts of digestive tract; Z98.51 Tubal ligation status; Z82.49 Family history of ischemic heart disease and other diseases of the circulatory system; Z82.5 Family history of asthma and other chronic lower respiratory diseases; Z91.09 Other allergy status, other than to drugs and biological substances; Z68.38 Body mass index [BMI] 38.0-38.9, adult
CPT/HCPCS: 36415; 71045; 71275; 80048; 81025; 85025; 85379; 86140; 99285

== ENCOUNTER → 2020-06-10 | Outpatient (CLI) | payer BC, OTHER ==
[2020-06-10 11:27] LABS: Basophils # (A) 0.03 X 10*3/uL (0.00-0.10); Basophils % (A) 0.7 %; Eosinophils # (A) 0.21 X 10*3/uL (0.04-0.35); Eosinophils % (A) 4.8 %; HCT 38.4 % (37.2-46.3); HGB 13.1 g/dL (12.0-15.0); Lymphocytes % (A) 40.7 %; MCH 30.5 pg (27.0-32.0); MCHC 34.1 g/dL (32.0-37.0); MCV 89.5 fL (80.0-97.0); Mean Platelet Volume 10.6 fL (9.5-12.2); Monocytes # (A) 0.29 X 10*3/uL (0.20-1.00); Monocytes % (A) 6.6 %; Neutrophils # (A) 2.08 X 10*3/uL (1.80-7.70); Platelet Count 221 X 10*3/uL (140-440); RBC 4.29 X 10*6/uL (4.10-5.20); RDW 13.9 % (11.5-14.5); WBC 4.42 X 10*3/uL (4.50-10.00)
[2020-06-10 11:55] LABS: African American GFR (CKD) 126.5 (60.0-200.0); Albumin 4.7 g/dL (3.80-4.90); Albumin/Globulin Ratio 1.96 (1.60-3.17); Anion Gap 10.8 mmol/L (4.00-12.00); BUN/Creat Ratio 14.29 Ratio (12.00-20.00); Calcium 9.3 mg/dL (8.7-10.3); Carbon Dioxide 29.2 mmol/L (21.6-31.8); Globulin 2.4 g/dL (1.6-3.3); Non-African American GFR(CKD) 109.1 (60.0-200.0); Potassium 3.1 mmol/L (3.5-5.5); Total Bilirubin 0.7 mg/dL (0.3-1.2); Total Protein 7.1 g/dL (6.2-8.2)
--- NOTE | 2020-06-10 12:10 | XR ---
EXAMINATION TYPE: XR chest 2V DATE OF EXAM: 06/10/2020 COMPARISON: 05/19/2020 HISTORY: Dyspnea, R06.00 TECHNIQUE: Frontal and lateral views of the chest are obtained. FINDINGS: There is no focal air space opacity, pleural effusion, or pneumothorax seen. The cardiac silhouette size is within normal limits. The osseous structures are intact. Surgical clips are pres ent right upper quadrant. IMPRESSION: No acute cardiopulmonary process. There is improvement in patient's previously identifie d pneumonia.
[2020-06-10 15:00] LABS: Hemoglobin A1C 6.8 % (4.0-6.0)
== END | disposition home or self-care (01) ==
LOC: LABWHC1 07:26
PROVIDERS: ATTEND Family Medicine
DX: J18.9 Pneumonia, unspecified organism (principal); H53.8 Other visual disturbances; R06.00 Dyspnea, unspecified
CPT/HCPCS: 36415; 71046; 80053; 83036; 84443; 85025

== ENCOUNTER → 2020-06-16 | Outpatient (CLI) | payer BC, OTHER ==
--- NOTE | 2020-06-16 10:33 | ECHOF ---
Referral Reason:R06.00 dyspnea MEASUREMENTS -------- HEIGHT: 160.0 cm WEIGHT: 99.8 kg BP: RVIDd: 2.5 cm (< 3.3) IVSd: 1.2 cm (0.6 - 1.1) LVIDd: 5.1 cm (3.9 - 5.3) LVPWd: 1.0 cm (0.6 - 1.1) IVSs: 1.5 cm LVIDs: 3.0 cm LVPWs: 2.1 cm LAESV Index (A-L): 15.86 ml/m Ao Diam: 3.1 cm (2.0 - 3.7) AV Cusp: 1.3 cm (1.5 - 2.6) MV EXCURSION: 15.271 mm (> 18.000) MV EF SLOPE: 62 mm/s (70 - 150) EPSS: 0.7 cm MV E Nabor: 0.41 m/s MV DecT: 238 ms MV A Nabor: 0.63 m/s MV E/A Ratio: 0.66 RAP: 5.00 mmHg RVSP: 21.61 mmHg FINDINGS -------- Sinus rhythm. This was a technically adequate study. The left ventricular size is normal. There is borderline concentric left ventricular hypertrophy. Overall left ventricular systolic function is mildly impaired with, an EF between 45 - 50 %. The right ventricle is normal in size. Normal LA size by volume 22+/-6 ml/m2. The right atrial size is normal. The aortic valve is trileaflet, and appears structurally normal. No aortic stenosis or regurgitation. The mitral valve is normal. Mild mitral regurgitation is present. The tricuspid valve appears structurally normal. Mild tricuspid regurgitation present. Right vent ricular systolic pressure is normal at < 35 mmHg. There is no pulmonic regurgitation present. The aortic root size is normal. Echo free space represents a pericardial fat pad. CONCLUSIONS -------- 1. There is borderline concentric left ventricular hypertrophy. 2. Overall left ventricular systolic function is mildly impaired with, an EF between 45 - 50 %. 3. Normal LA size by volume 22+/-6 ml/m2. 4. The aortic valve is trileaflet, and appears structurally normal. No aortic stenosis or regurgitati on. 5. Mild mitral regurgitation is present. 6. Mild tricuspid regurgitation present. 7. The aortic root size is normal. 8. Echo free space represents a pericardial fat pad. PROP MAKER: Sanjuanita Conner RDCS
== END | disposition home or self-care (01) ==
LOC: RADECHMAIN 08:23
PROVIDERS: ATTEND Family Medicine
DX: R06.00 Dyspnea, unspecified (principal); I08.1 Rheumatic disorders of both mitral and tricuspid valves
CPT/HCPCS: 93306

== ENCOUNTER → 2020-08-20 | Outpatient (CLI) | payer BC, OTHER | END | disposition home or self-care (01) | LOC: LABWHC1 16:23 | PROVIDERS: ATTEND Family Medicine | DX: Z20.822 Contact with and (suspected) exposure to COVID-19 (principal); M79.10 Myalgia, unspecified site | CPT/HCPCS: U0003; C9803; U0005 ==

== ENCOUNTER → 2020-09-24 | Outpatient (CLI) | payer BC, OTHER ==
[2020-09-24 11:01] LABS: HCT 41.9 % (37.2-46.3); HGB 13.7 g/dL (12.0-15.0); MCH 29.5 pg (27.0-32.0); MCHC 32.7 g/dL (32.0-37.0); MCV 90.3 fL (80.0-97.0); Mean Platelet Volume 10.6 fL (9.5-12.2); Platelet Count 290 X 10*3/uL (140-440); RBC 4.64 X 10*6/uL (4.10-5.20); RDW 13.3 % (11.5-14.5); WBC 5.31 X 10*3/uL (4.50-10.00)
[2020-09-24 11:57] LABS: African American GFR (CKD) 106.9 (60.0-200.0); Albumin 4.4 g/dL (3.80-4.90); Albumin/Globulin Ratio 1.57 (1.60-3.17); Anion Gap 7.3 mmol/L (4.00-12.00); Calcium 9.3 mg/dL (8.7-10.3); Carbon Dioxide 27.7 mmol/L (21.6-31.8); Globulin 2.8 g/dL (1.6-3.3); Non-African American GFR(CKD) 92.2 (60.0-200.0); Potassium 3.9 mmol/L (3.5-5.5); Total Bilirubin 1.1 mg/dL (0.2-1.2); Total Protein 7.2 g/dL (6.2-8.2)
[2020-09-24 12:05] LABS: Prolactin 6.7 ng/mL (2.8-29.2)
[2020-09-24 12:06] LABS: Estradiol 39.8 pg/mL
[2020-09-24 14:34] LABS: Hemoglobin A1C 5.7 % (4.0-6.0)
== END | disposition home or self-care (01) ==
LOC: LABWHC1 08:09
PROVIDERS: ATTEND Obstetrics & Gynecology
DX: N91.2 Amenorrhea, unspecified (principal)
CPT/HCPCS: 36415; 80053; 82670; 83001; 83036; 84144; 84146; 84403; 84443; 84481; 85027

== ENCOUNTER → 2020-10-28 | Outpatient (CLI) | payer BC, OTHER ==
--- NOTE | 2020-10-28 11:46 | MM ---
Reason for exam: screening (asymptomatic). Last mammogram was performed 5 years and 9 months ago. History: Family history of breast cancer in paternal grandmother at age 50. Took hormonal contraceptives for 2 years. Took other hormone beginning at age 39. Physical Findings: A clinical breast exam by your physician is recommended on an annual basis and results should be correlated with mammographic findings. MG Screening Mammo w CAD Bilateral CC and MLO view(s) were taken. Prior study comparison: January 27, 2015, bilateral MG diagnostic mammo w CAD JANEE. The breast tissue is heterogeneously dense. This may lower the sensitivity of mammography. ASSESSMENT: Negative, BI-RAD 1 RECOMMENDATION: Routine screening mammogram of both breasts in 1 year.
== END | disposition home or self-care (01) ==
LOC: RADMAMWWP 08:20
PROVIDERS: ATTEND Obstetrics & Gynecology
DX: Z12.31 Encounter for screening mammogram for malignant neoplasm of breast (principal)
CPT/HCPCS: 77067

== ENCOUNTER 2022-04-07 08:13 | Emergency (ER) | payer BC, OTHER ==
[2022-04-07 08:21] VITALS: BP 164/90; PULSE 76; RESP 20; TEMP 98.5
[2022-04-07] MEDS ORDERED: KETOROLAC 15 MG/ML 1 ML VIAL IM STA (09:38)
[2022-04-07] MEDS ORDERED: ORPHENADRINE 30 MG/ML 2 ML VIAL IM STA (09:38)
--- NOTE | 2022-04-07 09:51 | ED ---
General Adult HPI - General Chief complaint: Back Pain/Injury Stated complaint: Back Pain Time Seen by Provider: 04/07/22 09:15 Source: patient, RN notes reviewed, old records reviewed Mode of arrival: ambulatory Limitations: no limitations - History of Present Illness Initial comments: This is a 41-year-old female presents emergency Department with a four-day history of lower back pain. Patient states bilateral and it goes up and down on both sides of her spine. Patient states it doesn't hurt sitting still but she twists or bends it hurts. Patient denies any numbness weakness patient denies any urinary incontinence or retention. Patient denies any injury patient denies any fall. Patient denies any recent fever chills per patient denies abdominal pain flank pain. Patient denies any dysuria hematuria urinary frequency. - Related Data Home Medications Medication Instructions Recorded Confirmed Albuterol Nebulized [Ventolin 2.5 mg INHALATION RT-Q4H PRN 05/14/20 05/19/20 Nebulized] Citalopram Hydrobromide 30 mg PO HS 05/14/20 05/19/20 [Citalopram HBr] Loratadine [Claritin] 10 mg PO DAILY 05/14/20 05/19/20 Losartan Potassium [Cozaar] 50 mg PO HS 05/14/20 05/19/20 buPROPion XL [Wellbutrin XL] 150 mg PO DAILY 05/14/20 05/19/20 hydroCHLOROthiazide 25 mg PO DAILY 05/14/20 05/19/20 Previous Rx's Medication Instructions Recorded dexAMETHasone [Dexamethasone] 6 mg PO DAILY 7 Days #7 tablet 05/14/20 Cyclobenzaprine [Flexeril] 10 mg PO TID #15 tab 04/07/22 Ibuprofen [Motrin] 800 mg PO Q8H #21 tab 04/07/22 Allergies Allergy/AdvReac Type Severity Reaction Status Date / Time amoxicillin Allergy Rash/Hives Verified 05/19/20 19:31 Penicillins Allergy Rash/Hives Verified 04/07/22 08:21 morphine AdvReac Nausea & Verified 05/20/20 03:47 Vomiting Review of Systems ROS Statement: Those systems with pertinent positive or pertinent negative responses have been documented in the HPI. ROS Other: All systems not noted in ROS Statement are negative. Past Medical History Past Medical History: Hypertension Additional Past Medical History / Comment(s): gestational diabetes, covid 19 History of Any Multi-Drug Resistant Organisms: None Reported Past Surgical History: Cholecystectomy, Tubal Ligation Additional Past Surgical History / Comment(s): Left knee surgery, L wrist cyst removal Past Anesthesia/Blood Transfusion Reactions: Postoperative Nausea & Vomiting (PONV) Past Psychological History: Anxiety, Depression Smoking Status: Never smoker Past Alcohol Use History: Rare Past Drug Use History: None Reported - Past Family History Father Family Medical History: Coronary Artery Disease (CAD), Hypertension Additional Family Medical History / Comment(s): 2x bypass Mother Family Medical History: Asthma, Hypertension General Exam - General Exam Comments Initial Comments: GENERAL: Patient is well-developed and well-nourished. Patient is nontoxic and well- hydrated and is in mild distress. ENT: Neck is soft and supple. No significant lymphadenopathy is noted. Oropharynx is clear. Moist mucous membranes. Neck has full range of motion without eliciting any pain. EYES: The sclera were anicteric and conjunctiva were pink and moist. Extraocular movements were intact and pupils were equal round and reactive to light. Eyelids were unremarkable. PULMONARY: Unlabored respirations. Good breath sounds bilaterally. No audible rales rhonchi or wheezing was noted. CARDIOVASCULAR: There is a regular rate and rhythm without any murmurs gallops or rubs. ABDOMEN: Soft and nontender with normal bowel sounds. SKIN: Skin is clear with no lesions or rashes and otherwise unremarkable. NEUROLOGIC: Patient is alert and oriented x3. Cranial nerves II through XII are grossly intact. Motor and sensory are also intact. Normal speech, volume and content. Symmetrical smile. MUSCULOSKELETAL: Normal extremities with adequate strength and full range of motion. Patient's lower back is nontender to palpation however she bends or twists does elicit pain on either side of the spine. Patient has a normal straight leg test at 60. LYMPHATICS: No significant lymphadenopathy is noted PSYCHIATRIC: Normal psychiatric evaluation. Limitations: no limitations Course Vital Signs 04/07/22 08:19 Temperature 98.5 F Pulse Rate 76 Respiratory 20 Rate Blood Pressure 164/90 O2 Sat by Pulse 100 Oximetry Disposition Clinical Impression: Strain of lumbar region Disposition: HOME SELF-CARE Condition: Good Instructions (If sedation given, give patient instructions): Acute Low Back Pain (ED) Prescriptions: Cyclobenzaprine [Flexeril] 10 mg PO TID #15 tab Ibuprofen [Motrin] 800 mg PO Q8H #21 tab Is patient prescribed a controlled substance at d/c from ED?: No Referrals: Morteza Correa III, MD [Primary Care Provider] - 1-2 days Time of Disposition: 09:51
== END 2022-04-07 10:01 | disposition home or self-care (01) ==
LOC: EC 08:13
DX: S39.012A Strain of muscle, fascia and tendon of lower back, initial encounter (principal); I10 Essential (primary) hypertension; F41.9 Anxiety disorder, unspecified; F32.A Depression, unspecified; Z88.0 Allergy status to penicillin; Z88.5 Allergy status to narcotic agent; X58.XXXA Exposure to other specified factors, initial encounter; Z79.899 Other long term (current) drug therapy
CPT/HCPCS: 99283 ×2; 96372 ×3; J2360; J1885

== ENCOUNTER 2022-07-31 10:02 | Emergency (ER) | payer BC, OTHER ==
[2022-07-31 10:06] VITALS: RESP 18
[2022-07-31] MEDS ORDERED: KETOROLAC 15 MG/ML 1 ML VIAL IM STA (10:37)
[2022-07-31] MEDS ORDERED: ONDANSETRON 4 MG/2 ML VIAL IVP STA (10:37)
[2022-07-31] MEDS ORDERED: SODIUM CHLORIDE 0.9% 1,000 ML IV ONE ×2 (10:37→12:13)
--- NOTE | 2022-07-31 11:00 | ED ---
General Adult HPI - General Chief complaint: Back Pain/Injury Stated complaint: back pain Time Seen by Provider: 07/31/22 10:09 Source: patient, RN notes reviewed Mode of arrival: ambulatory Limitations: no limitations - History of Present Illness Initial comments: 41-year-old female with a history of diabetes who presents to the emergency department with a chief complaint of urinary problem. Patient reports that for the last 4 months she has had increased urgency to urinate. She reports that her symptoms started when she was started on Zantac. She reports that over the last 7 days her symptoms have gotten worse. She is complaining of bilateral low back pain that radiates to the front. She does report to accompanying symptoms of some nausea however has not vomited. She denies any dysuria, hematuria, fevers, chills, flank pain, pelvic pain. - Related Data Home Medications Medication Instructions Recorded Confirmed Loratadine [Claritin] 10 mg PO DAILY 05/14/20 07/31/22 Losartan Potassium [Cozaar] 50 mg PO HS 05/14/20 07/31/22 hydroCHLOROthiazide 25 mg PO DAILY 05/14/20 07/31/22 Atorvastatin [Lipitor] 20 mg PO DAILY 07/31/22 07/31/22 Citalopram Hydrobromide [CeleXA] 40 mg PO HS 07/31/22 07/31/22 Empagliflozin [Jardiance] 10 mg PO HS 07/31/22 07/31/22 Metoprolol Succinate (ER) [Toprol 25 mg PO HS 07/31/22 07/31/22 Xl] Omeprazole [PriLOSEC] 20 mg PO HS 07/31/22 07/31/22 Semaglutide [Ozempic] 0.5 mg SQ WE 07/31/22 07/31/22 buPROPion XL [Wellbutrin XL] 300 mg PO DAILY 07/31/22 07/31/22 Allergies Allergy/AdvReac Type Severity Reaction Status Date / Time amoxicillin Allergy Rash/Hives Verified 07/31/22 10:43 Penicillins Allergy Rash/Hives Verified 07/31/22 10:43 morphine AdvReac Nausea & Verified 07/31/22 10:43 Vomiting Review of Systems ROS Statement: Those systems with pertinent positive or pertinent negative responses have been documented in the HPI. ROS Other: All systems not noted in ROS Statement are negative. Past Medical History Past Medical History: Diabetes Mellitus, Hypertension Additional Past Medical History / Comment(s): gestational diabetes, covid 19 History of Any Multi-Drug Resistant Organisms: None Reported Past Surgical History: Cholecystectomy, Tubal Ligation Additional Past Surgical History / Comment(s): Left knee surgery, L wrist cyst removal Past Anesthesia/Blood Transfusion Reactions: Postoperative Nausea & Vomiting (PONV) Past Psychological History: Anxiety, Depression Smoking Status: Never smoker Past Alcohol Use History: Rare Past Drug Use History: None Reported - Past Family History Father Family Medical History: Coronary Artery Disease (CAD), Hypertension Additional Family Medical History / Comment(s): 2x bypass Mother Family Medical History: Asthma, Hypertension General Exam Limitations: no limitations General appearance: alert, in no apparent distress Head exam: Present: atraumatic, normocephalic, normal inspection Eye exam: Present: normal appearance, PERRL, EOMI. Absent: scleral icterus, conjunctival injection, periorbital swelling ENT exam: Present: normal exam, mucous membranes moist Neck exam: Present: normal inspection. Absent: tenderness, meningismus, lymphadenopathy Respiratory exam: Present: normal lung sounds bilaterally. Absent: respiratory distress, wheezes, rales, rhonchi, stridor Cardiovascular Exam: Present: regular rate, normal rhythm, normal heart sounds. Absent: systolic murmur, diastolic murmur, rubs, gallop, clicks GI/Abdominal exam: Present: soft, normal bowel sounds. Absent: distended, tenderness, guarding, rebound, rigid Extremities exam: Present: normal inspection, full ROM, normal capillary refill. Absent: tenderness, pedal edema, joint swelling, calf tenderness Back exam: Present: normal inspection Neurological exam: Present: alert, oriented X3, CN II-XII intact Psychiatric exam: Present: normal affect, normal mood Skin exam: Present: warm, dry, intact, normal color. Absent: rash Course Vital Signs 07/31/22 07/31/22 07/31/22 10:03 12:00 14:00 Temperature 97.9 F Pulse Rate 85 70 76 Respiratory 18 18 18 Rate Blood Pressure 126/82 112/70 125/77 O2 Sat by Pulse 99 99 97 Oximetry 07/31/22 14:32 Temperature 97.7 F Pulse Rate 76 Respiratory 18 Rate Blood Pressure O2 Sat by Pulse Oximetry Medical Decision Making - Medical Decision Making Was pt. sent in by a medical professional or institution (DEISY Clarke, ORTHOPEDIC PHYSICIAN ASSISTANT, urgent care, hospital, or halfway...) When possible be specific @ -[No] Did you speak to anyone other than the patient for history (EMS, parent, family, police, friend...)? What history was obtained from this source @ -[No] Did you review nursing and triage notes (agree or disagree)? Why? @ -[I reviewed and agree with nursing and triage notes] Were old charts reviewed (outside hosp., previous admission, EMS record, old EKG, old radiological studies, urgent care reports/EKG's, halfway records)? Report findings @ -[No old charts were reviewed] Differential Diagnosis (chest pain, altered mental status, abdominal pain women, abdominal pain men, vaginal bleeding, weakness, fever, dyspnea, syncope, headache, dizziness, GI bleed, back pain, seizure, CVA, palpatations, mental health, musculoskeletal)? @ -[not applicable] EKG interpreted by me (3pts min.). @ -[As above] X-rays interpreted by me (1pt min.). @ -[None done] CT interpreted by me (1pt min.). @ -CT abdomen and pelvis negative for any evidence of nephrolithiasis, urgent nephrosis or any other acute abdominal process U/S interpreted by me (1pt. min.). @ -[None done] What testing was considered but not performed or refused? (CT, X-rays, U/S, labs)? Why? @ -[None] What meds were considered but not given or refused? Why? @ -[None] Did you discuss the management of the patient with other professionals (professionals i.e. DEISY Clarke, ORTHOPEDIC PHYSICIAN ASSISTANT, lab, RT, psych nurse, social services aide, warehouse general laborer, teacher, parachute/combatant diver officer, case finisher)? Give summary @ -[No] Was smoking cessation discussed for >3mins.? @ -[No] Was critical care preformed (if so, how long)? @ -[No] Were there social determinants of health that impacted care today? How? (Homelessness, low income, unemployed, alcoholism, drug addiction, transportation, low edu. Level, literacy, decrease access to med. care, half-way, rehab)? @ -[No] Was there de-escalation of care discussed even if they declined (Discuss DNR or withdrawal of care, Hospice)? DNR status @ -[No] What co-morbidities impacted this encounter? (DM, HTN, Smoking, COPD, CAD, Cancer, CVA, ARF, Chemo, Hep., AIDS, mental health diagnosis, sleep apnea, morbid obesity)? @ -[None] Was patient admitted / discharged? Hospital course, mention meds given and route, prescriptions, significant lab abnormalities, going to OR and other pertinent info. @ Discharged. This is a 41-year-old male who presents to the emergency department with low back pain. Patient had a thorough history and physical exam performed on the ED. Physical exam is essentially unremarkable. Heart rate regular rate and rhythm, lungs clear to auscultation bilaterally abdomen is soft and non-tender, no CVA tenderness. Patient able to ambulate with a steady gait. Patient receieved toradol and 1L IV fluids with symptomatic relief on the ED. Patient had an extensive lab work and imaging workup performed which was essentially unremarkable. I discussed the results in detail with the patient verbalized understanding and all questions were addressed. Return precautions were discussed at length. The patient was discharged in stable condition. Case discussed with Dr. Terry [facility] who agrees with plan of care Undiagnosed new problem with uncertain prognosis? @ -[No] Drug Therapy requiring intensive monitoring for toxicity (Heparin, Nitro, Insulin, Cardizem)? @ -[No] Were any procedures done? @ -[No] Diagnosis/symptom? @ -acute low back pain Acute, or Chronic, or Acute on Chronic? @ -acute Uncomplicated (without systemic symptoms) or Complicated (systemic symptoms)? @ -uncomplicated Side effects of treatment? @ -[No] Exacerbation, Progression, or Severe Exacerbation? @ -[No] Poses a threat to life or bodily function? How? (Chest pain, USA, AR, pneumonia, PE, COPD, DKA, ARF, appy, cholecystitis, CVA, Diverticulitis, Homicidal, Suicidal, threat to staff... and all critical care pts) @ -low likelihood - Lab Data Result diagrams: 07/31/22 10:49 07/31/22 10:49 Lab Results 07/31/22 07/31/22 07/31/22 Range/Units 10:49 10:49 13:25 WBC 6.5 (3.8-10.6) k/uL RBC 4.87 (3.80-5.40) m/uL Hgb 14.8 (11.4-16.0) gm/dL Hct 42.1 (34.0-46.0) % MCV 86.4 (80.0-100.0) fL MCH 30.3 (25.0-35.0) pg MCHC 35.1 (31.0-37.0) g/dL RDW 14.8 (11.5-15.5) % Plt Count 258 (150-450) k/uL MPV 8.3 Neutrophils % 56 % Lymphocytes % 36 % Monocytes % 4 % Eosinophils % 1 % Basophils % 1 % Neutrophils # 3.6 (1.3-7.7) k/uL Lymphocytes # 2.3 (1.0-4.8) k/uL Monocytes # 0.3 (0-1.0) k/uL Eosinophils # 0.1 (0-0.7) k/uL Basophils # 0.0 (0-0.2) k/uL Sodium 139 (137-145) mmol/L Potassium 3.9 (3.5-5.1) mmol/L Chloride 106 (98-107) mmol/L Carbon Dioxide 25 (22-30) mmol/L Anion Gap 8 mmol/L BUN 15 (7-17) mg/dL Creatinine 0.61 (0.52-1.04) mg/dL Est GFR (CKD-EPI)AfAm >90 (>60 ml/min/1.73 sqM) Est GFR (CKD-EPI)NonAf >90 (>60 ml/min/1.73 sqM) Glucose 101 H (74-99) mg/dL Calcium 9.0 (8.4-10.2) mg/dL Total Bilirubin 0.6 (0.2-1.3) mg/dL AST 50 H (14-36) U/L ALT 94 H (4-34) U/L Alkaline Phosphatase 59 (38-126) U/L Total Protein 7.1 (6.3-8.2) g/dL Albumin 4.2 (3.5-5.0) g/dL Urine Color Light Yellow Urine Appearance Clear (Clear) Urine pH 6.5 (5.0-8.0) Ur Specific [place] 1.009 (1.001-1.035) Urine Protein Negative (Negative) Urine Glucose (UA) 3+ H (Negative) Urine Ketones Negative (Negative) Urine Blood Negative (Negative) Urine Nitrite Negative (Negative) Urine Bilirubin Negative (Negative) Urine Urobilinogen <2.0 (<2.0) mg/dL Ur Leukocyte Esterase Trace H (Negative) Urine WBC 1 (0-5) /hpf Ur Squamous Epith Cells 1 (0-4) /hpf Disposition Clinical Impression: Dysuria Disposition: HOME SELF-CARE Condition: Stable Instructions (If sedation given, give patient instructions): Dysuria (ED) Additional Instructions: Please return to the nearest emergency department if symptoms of flank pain dysuria or hematuria develops Please take [id number] Azo for urinary symptoms. Please make an appointment with PCP within 1-2 days Is patient prescribed a controlled substance at d/c from ED?: No Referrals: Morteza Correa III, MD [Primary Care Provider] - 1-2 days Time of Disposition: 14:13
[2022-07-31 11:22] LABS: ALT 94 U/L (4-34); AST 50 U/L (14-36); African American GFR (CKD) >90 (>60 ml/min/1.73 sqM); Albumin 4.2 g/dL (3.5-5.0); Alkaline Phosphatase 59 U/L (38-126); Anion Gap 8 mmol/L; Blood Urea Nitrogen 15 mg/dL (7-17); Carbon Dioxide 25 mmol/L (22-30); Chloride 106 mmol/L (98-107); Glucose 101 mg/dL (74-99); Non-African American GFR(CKD) >90 (>60 ml/min/1.73 sqM); Potassium 3.9 mmol/L (3.5-5.1); Sodium 139 mmol/L (137-145); Total Bilirubin 0.6 mg/dL (0.2-1.3); Total Protein 7.1 g/dL (6.3-8.2)
[2022-07-31 11:39] LABS: Basophils % (A) 1 %; Eosinophils # (A) 0.1 k/uL (0-0.7); Eosinophils % (A) 1 %; HCT 42.1 % (34.0-46.0); HGB 14.8 gm/dL (11.4-16.0); Lymphocytes # (A) 2.3 k/uL (1.0-4.8); Lymphocytes % (A) 36 %; MCH 30.3 pg (25.0-35.0); MCHC 35.1 g/dL (31.0-37.0); MCV 86.4 fL (80.0-100.0); Mean Platelet Volume 8.3; Monocytes # (A) 0.3 k/uL (0-1.0); Monocytes % (A) 4 %; Neutrophils # (A) 3.6 k/uL (1.3-7.7); Neutrophils % (A) 56 %; Platelet Count 258 k/uL (150-450); RBC 4.87 m/uL (3.80-5.40); RDW 14.8 % (11.5-15.5); WBC 6.5 k/uL (3.8-10.6)
--- NOTE | 2022-07-31 11:41 | CT ---
EXAMINATION TYPE: CT abdomen pelvis wo con DATE OF EXAM: 07/31/2022 COMPARISON: 09/13/16 HISTORY: Bilateral flank pain intermittently [address] DLP: 1035.5 mGycm Examination of the solid and hollow viscera is limited given the lack of contrast. FINDINGS: LUNG BASES: No evidence for nodule. No evidence for infiltrate. LIVER/GB: The gallbladder is unremarkable. No space-occupying hepatic lesion. PANCREAS: No pancreatic mass identified. No inflammatory process seen. SPLEEN: No evidence for splenomegaly. No intrasplenic lesions seen. ADRENALS: No adrenal nodules identified. No evidence for thickening. KIDNEYS: No evidence for renal mass. No nephrolithiasis. No hydronephrosis. BOWEL: Appendix has a normal appearance. No evidence of bowel obstruction. No inflammatory process. Lymph nodes: No evidence for adenopathy greater than 1 cm. Abdominal aorta: Atheromatous changes seen. No evidence for aneurysm. Genital organs: No significant abnormality. Other: No significant abnormality. IMPRESSION: No acute abnormality seen
[2022-07-31 13:44] LABS: Appearance,Urine Clear (Clear); Bilirubin,Urine Negative (Negative); Blood,Urine Negative (Negative); Color,Urine Light Yellow; Glucose,Urine (UA) 3+ (Negative); Ketones,Urine Negative (Negative); Leukocyte Esterase,Urine Trace (Negative); Nitrite,Urine Negative (Negative); PH, Urine 6.5 (5.0-8.0); Protein,Urine Negative (Negative); Specific Gravity,Urine 1.009 (1.001-1.035); Squamous Epithelial Cell,Urine 1 /hpf (0-4); Urobilinogen,Urine <2.0 mg/dL (<2.0); WBC,Urine 1 /hpf (0-5)
[2022-07-31 14:04] VITALS: BP 125/77; PULSE 76
[2022-07-31] MEDS ORDERED: ONDANSETRON 4 MG ODT STARTER PACK 2 TAB BTL PO STA (14:13)
[2022-07-31 14:36] VITALS: TEMP 97.7
== END 2022-07-31 14:32 | disposition home or self-care (01) ==
LOC: EC 10:02
DX: R30.0 Dysuria (principal); E11.9 Type 2 diabetes mellitus without complications; I10 Essential (primary) hypertension; F41.9 Anxiety disorder, unspecified; F32.A Depression, unspecified; Z88.0 Allergy status to penicillin; Z88.1 Allergy status to other antibiotic agents; Z88.8 Allergy status to other drugs, medicaments and biological substances; Z90.49 Acquired absence of other specified parts of digestive tract; Z98.51 Tubal ligation status; Z79.899 Other long term (current) drug therapy; Z79.84 Long term (current) use of oral hypoglycemic drugs
CPT/HCPCS: 36415; 80053; 85025; 81001; 74176; 99284; 96374; 96372; 96361; J2405; J1885; S0119

== ENCOUNTER → 2022-08-04 | Outpatient (CLI) | payer BC, OTHER ==
[2022-08-04 11:08] LABS: African American GFR (CKD) 124.7 (60.0-200.0); BUN/Creat Ratio 19.71 Ratio (12.00-20.00); Blood Urea Nitrogen 13.8 mg/dL (9.0-27.0); Calcium 9.1 mg/dL (8.7-10.3); Carbon Dioxide 21.6 mmol/L (20.0-27.5); Chloride 105 mmol/L (96-109); Chol/HDL Ratio 4.36 Ratio; Glucose 114 mg/dL (70-110); LDL Cholesterol,Calculated 73.4 mg/dL (0.0-131.0); Non-African American GFR(CKD) 107.6 (60.0-200.0); Potassium 3.5 mmol/L (3.5-5.5); Sodium 142 mmol/L (135-145)
[2022-08-04 11:19] LABS: Hepatitis A Antibody IgM Nonreactive (Nonreactive); Hepatitis B Core IgM Nonreactive (Nonreactive); Hepatitis B Surface Antigen Nonreactive (Nonreactive); Hepatitis C IgG Antibody Nonreactive (Nonreactive)
[2022-08-05 11:54] LABS: ALT 89 U/L (8-44); AST 40 U/L (13-35); Albumin 4.3 g/dL (3.8-4.9); Albumin/Globulin Ratio 1.63 (1.60-3.17); Alkaline Phosphatase 65 U/L (41-126); Bilirubin, Conjugated <0.20 mg/dL (0.20-0.40); Globulin 2.6 g/dL (1.6-3.3); Total Protein 6.9 g/dL (6.2-8.2)
== END | disposition home or self-care (01) ==
LOC: LABWHC1 07:37
PROVIDERS: ATTEND Family Medicine
DX: E11.9 Type 2 diabetes mellitus without complications (principal); E78.2 Mixed hyperlipidemia; F33.1 Major depressive disorder, recurrent, moderate; K76.0 Fatty (change of) liver, not elsewhere classified; K21.9 Gastro-esophageal reflux disease without esophagitis
CPT/HCPCS: 36415; 80048; 80061; 80074; 80076; 83036

== ENCOUNTER → 2022-09-16 | Outpatient (CLI) | payer BC, OTHER ==
[2022-09-16 13:32] LABS: Appearance,Urine Clear (Clear); Bilirubin,Urine Negative (Negative); Blood,Urine Negative (Negative); Color,Urine Yellow (Yellow); Ketones,Urine Negative (Negative); Nitrite,Urine Negative (Negative); PH, Urine 6.5 (5.0-8.0); Specific Gravity,Urine 1.031 (1.001-1.030)
[2022-09-16 13:42] LABS: African American GFR (CKD) 94.4 (60.0-200.0); Anion Gap 13.8 mmol/L (10.00-18.00); Blood Urea Nitrogen 14.3 mg/dL (9.0-27.0); Carbon Dioxide 27.2 mmol/L (20.0-27.5); Non-African American GFR(CKD) 81.5 (60.0-200.0); Potassium 3.4 mmol/L (3.5-5.5)
[2022-09-16 14:05] LABS: Basophils # (A) 0.04 X 10*3/uL (0.00-0.10); Basophils % (A) 0.6 %; Eosinophils # (A) 0.13 X 10*3/uL (0.04-0.35); Eosinophils % (A) 1.9 %; Immature Grans, Automated 0.3 %; Lymphocytes # (A) 2.14 X 10*3/uL (0.90-5.00); Lymphocytes % (A) 31.4 %; MCH 29.3 pg (27.0-32.0); MCHC 32.6 g/dL (32.0-37.0); Mean Platelet Volume 10.6 fL (9.5-12.2); Monocytes # (A) 0.41 X 10*3/uL (0.20-1.00); NRBC Per 100 WBC 0 /100 WBCS (0.0-0.0); Neutrophils # (A) 4.07 X 10*3/uL (1.80-7.70); Neutrophils % (A) 59.8 %; Platelet Count 345 X 10*3/uL (140-440); RBC 4.78 X 10*6/uL (4.10-5.20); WBC 6.81 X 10*3/uL (4.50-10.00)
== END | disposition home or self-care (01) ==
LOC: LABWHC1 08:17
PROVIDERS: ATTEND Obstetrics & Gynecology Obstetrics
DX: Z01.818 Encounter for other preprocedural examination (principal); N92.6 Irregular menstruation, unspecified; N94.6 Dysmenorrhea, unspecified; I21.4 Non-ST elevation (NSTEMI) myocardial infarction; I45.81 Long QT syndrome
CPT/HCPCS: 36415; 80051; 81003; 82565; 84520; 85025; 93005

== ENCOUNTER 2023-05-27 10:32 | Emergency (ER) | payer BC, OTHER ==
[2023-05-27] MEDS ORDERED: METOCLOPRAMIDE 5 MG/ML 2 ML VIAL IVP STA (11:30)
[2023-05-27] MEDS ORDERED: SODIUM CHLORIDE 0.9% 1,000 ML IV STA (11:30)
--- NOTE | 2023-05-27 11:34 | ED ---
Nausea/Vomiting/Diarrhea HPI - General Chief complaint: Nausea/Vomiting/Diarrhea Stated complaint: N/V/D Time Seen by Provider: 05/27/23 11:31 Source: patient, RN notes reviewed Mode of arrival: ambulatory Limitations: no limitations - History of Present Illness Initial comments: Patient is a 42-year-old female presented ER with a chief complaint of nausea and diarrhea. Patient states she's been having the symptoms for the past week. Patient reports that she has been having a mild cough shortness of breath especially with exertion. She states that she experiences dyspnea walking 10 feet. She reports she's been having vomiting and diarrhea and has not been able to keep anything down. She states that her emesis and diarrhea is yellow in color. Patient does report a cholecystectomy. Patient has a past medical history significant for hypertension, diabetes, and PCOS. She has tried [id number] Tums and gas relief without any success. She states she feels extremely dehydrated and feels the chills. Denies any chest pain, peripheral edema, headache, visual changes, or fevers. - Related Data Home Medications Medication Instructions Recorded Confirmed Loratadine [Claritin] 10 mg PO M 05/14/20 09/20/22 Losartan Potassium [Cozaar] 50 mg PO 05/14/20 09/20/22 hydroCHLOROthiazide 25 mg PO [facility] 05/14/20 09/20/22 Atorvastatin [Lipitor] 20 mg PO [facility] 07/31/22 09/20/22 Citalopram Hydrobromide [CeleXA] 40 mg PO 07/31/22 09/20/22 Empagliflozin [Jardiance] 10 mg PO 07/31/22 09/20/22 Metoprolol Succinate (ER) [Toprol 25 mg PO 07/31/22 09/20/22 Xl] Omeprazole [PriLOSEC] 20 mg PO 07/31/22 09/20/22 buPROPion XL [Wellbutrin XL] 300 mg PO [facility] 07/31/22 09/20/22 Qvar Inhaler (Unknown Dose) 1 puff INHALATION DIRECTED PRN 09/20/22 09/20/22 Allergies Allergy/AdvReac Type Severity Reaction Status Date / Time amoxicillin Allergy Rash/Hives Verified 03/18/23 14:36 Penicillins Allergy Rash/Hives Verified 03/18/23 14:36 morphine AdvReac Nausea & Verified 03/18/23 14:36 Vomiting Review of Systems ROS Statement: Those systems with pertinent positive or pertinent negative responses have been documented in the HPI. ROS Other: All systems not noted in ROS Statement are negative. Past Medical History Past Medical History: Diabetes Mellitus, Hypertension Additional Past Medical History / Comment(s): gestational diabetes, covid 19 History of Any Multi-Drug Resistant Organisms: None Reported Past Surgical History: Cholecystectomy, Tubal Ligation Additional Past Surgical History / Comment(s): Left knee surgery, L wrist cyst removal Past Anesthesia/Blood Transfusion Reactions: Postoperative Nausea & Vomiting (PONV) Past Psychological History: Anxiety, Depression Smoking Status: Never smoker Past Alcohol Use History: Rare - Past Family History Father Family Medical History: Cancer, Coronary Artery Disease (CAD), Hypertension Additional Family Medical History / Comment(s): Double bypass, kidney cancer. Mother Family Medical History: Asthma, Hypertension General Exam Limitations: no limitations General appearance: alert, in no apparent distress Eye exam: Present: normal appearance, PERRL, EOMI. Absent: scleral icterus, conjunctival injection, periorbital swelling ENT exam: Present: normal exam, normal oropharynx, mucous membranes moist, TM's normal bilaterally Neck exam: Present: normal inspection. Absent: tenderness, meningismus, lymphadenopathy Respiratory exam: Present: normal lung sounds bilaterally. Absent: respiratory distress, wheezes, rales, rhonchi, stridor Cardiovascular Exam: Present: regular rate, normal rhythm, normal heart sounds. Absent: systolic murmur, diastolic murmur, rubs, gallop, clicks GI/Abdominal exam: Present: soft, normal bowel sounds. Absent: distended, tenderness, guarding, rebound, rigid Extremities exam: Present: normal inspection, full ROM, normal capillary refill. Absent: tenderness, pedal edema, joint swelling, calf tenderness Neurological exam: Present: alert, oriented X3, CN II-XII intact Psychiatric exam: Present: normal affect, normal mood Skin exam: Present: warm, intact, normal color, diaphoretic (mild). Absent: rash Course Vital Signs 05/27/23 05/27/23 05/27/23 10:58 13:48 15:13 Temperature 98.1 F 97.8 F Pulse Rate 112 H 106 H 111 H Respiratory 20 18 18 Rate Blood Pressure 131/87 127/81 133/89 O2 Sat by Pulse 97 97 97 Oximetry Medical Decision Making - Medical Decision Making Was pt. sent in by a medical professional or institution (, [facility], [facility], urgent care, hospital, or [facility]...) When possible be specific @ -No Did you speak to anyone other than the patient for history (EMS, parent, family, police, friend...)? What history was obtained from this source @ -No Did you review nursing and triage notes (agree or disagree)? Why? @ -I reviewed and agree with nursing and triage notes Were old charts reviewed (outside hosp., previous admission, EMS record, old EKG, old radiological studies, urgent care reports/EKG's, [facility] records)? Report findings @ -No old charts were reviewed Differential Diagnosis (chest pain, altered mental status, abdominal pain women, abdominal pain men, vaginal bleeding, weakness, fever, dyspnea, syncope, headache, dizziness, GI bleed, back pain, seizure, CVA, palpatations, mental health, musculoskeletal)? @ -Differential Abdominal Pain Women: Appendicitis, Cholecystitis, diverticulosis, ischemic bowel, pancreatitis, hepatitis, UTI, gastroenteritis, AAA, incarcerated hernia, bowel obstruction, constipation, inflammatory bowel, hepatitis, peptic ulcer disease, splenic infarction, perforated viscus, vulvitis, ovarian torsion, PID, kidney stone, placenta abruption, this is not meant to be an all-inclusive list EKG interpreted by me (3pts min.). @ -None X-rays interpreted by me (1pt min.). @ -Chest x-ray interpreted by me shows no acute process. CT interpreted by me (1pt min.). @ -None done U/S interpreted by me (1pt. min.). @ -None done What testing was considered but not performed or refused? (CT, X-rays, U/S, labs)? Why? @ -None What meds were considered but not given or refused? Why? @ -None Did you discuss the management of the patient with other professionals (professionals i.e. [facility] Clarke, [facility], lab, RT, psych nurse, social sciences instructor, emergency worker, teacher, driver's license reviewing officer, case mgr)? Give summary @ -No Was smoking cessation discussed for >3mins.? @ -No Was critical care preformed (if so, how long)? @ -No Were there social determinants of health that impacted care today? How? (Homelessness, low income, unemployed, alcoholism, drug addiction, transportation, low edu. Level, literacy, decrease access to med. care, long term, rehab)? @ -No Was there de-escalation of care discussed even if they declined (Discuss DNR or withdrawal of care, Hospice)? DNR status @ -No What co-morbidities impacted this encounter? (DM, HTN, Smoking, COPD, CAD, Cancer, CVA, ARF, Chemo, Hep., AIDS, mental health diagnosis, sleep apnea, morbid obesity)? @ -PCOS, diabetes mellitus, obesity, HTN Was patient admitted / discharged? Hospital course, mention meds given and route, prescriptions, significant lab abnormalities, going to OR and other pertinent info. @ -Discharge. Patient is a 42 year old female presenting to the ER with a chief complaint of nausea and diarrhea. Past medical history significant for diabetes mellitus, hypertension, PCOS, and cholecystectomy. Patient was tachycardic at 111, vitals otherwise stable. History and physical exam were completed. No signs of acute distress. Labs obtained in the ER with significnat for total bilirubin 1.6, AST 63, ALT 119. Patient does has chronically elevated LFTs. Labs otherwise unimpressive. UA with signs of mild dehydration but no indication of infection. Chest x-ray without signs of acute process. Covid, rsv, influenza negative. Patient recievd IV fluids, reglan, and compazine with improvements of nausea. I discussed lab and imaging findings with patient. I advised her to increase hydration and to monitor for any worsening symptoms. I also advised her to continue to take medication as prescribed. Patient refused prescription of Zofran. Strict return parameters were discussed. Patient be discharged in stable condition with follow-up to PCP. Patient expressed understanding and a greement with care plan. Undiagnosed new problem with uncertain prognosis? @ -No Drug Therapy requiring intensive monitoring for toxicity (Heparin, Nitro, Insulin, Cardizem)? @ -No Were any procedures done? @ -No Diagnosis/symptom? @ -Nausea/diarrhea/dehydration Acute, or Chronic, or Acute on Chronic? @ -Acute Uncomplicated (without systemic symptoms) or Complicated (systemic symptoms)? @ -Uncomplicated Side effects of treatment? @ -No Exacerbation, Progression, or Severe Exacerbation? @ -No Poses a threat to life or bodily function? How? (Chest pain, [place], SD, pneumonia, PE, COPD, DKA, ARF, appy, cholecystitis, CVA, Diverticulitis, Homicidal, Suicidal, threat to staff... and all critical care pts) @ -No - Lab Data Result diagrams: 05/27/23 12:03 05/27/23 13:08 Lab Results 05/27/23 05/27/23 05/27/23 Range/Units 12:03 12:03 12:03 WBC 9.2 (3.8-10.6) k/uL RBC 5.84 H (3.80-5.40) m/uL Hgb 16.9 H (11.4-16.0) gm/dL Hct 49.6 H (34.0-46.0) % MCV 84.8 (80.0-100.0) fL MCH 29.0 (25.0-35.0) pg MCHC 34.2 (31.0-37.0) g/dL RDW 14.0 (11.5-15.5) % Plt Count 463 H (150-450) k/uL MPV 7.6 Neutrophils % 53 % Lymphocytes % 36 % Monocytes % 6 % Eosinophils % 1 % Basophils % 1 % Neutrophils # 4.9 (1.3-7.7) k/uL Lymphocytes # 3.3 (1.0-4.8) k/uL Monocytes # 0.5 (0-1.0) k/uL Eosinophils # 0.1 (0-0.7) k/uL Basophils # 0.1 (0-0.2) k/uL Sodium (137-145) mmol/L Potassium (3.5-5.1) mmol/L Chloride (98-107) mmol/L Carbon Dioxide (22-30) mmol/L Anion Gap mmol/L BUN (7-17) mg/dL Creatinine (0.52-1.04) mg/dL Est GFR (CKD-EPI)AfAm (>60 ml/min/1.73 sqM) Est GFR (CKD-EPI)NonAf (>60 ml/min/1.73 sqM) Glucose (74-99) mg/dL Calcium (8.4-10.2) mg/dL Total Bilirubin (0.2-1.3) mg/dL AST (14-36) U/L ALT (4-34) U/L Alkaline Phosphatase (38-126) U/L Total Protein (6.3-8.2) g/dL Albumin (3.5-5.0) g/dL Amylase (30-110) U/L Lipase (23-300) U/L Urine Color Light Yellow Urine Appearance Cloudy H (Clear) Urine pH 5.5 (5.0-8.0) Ur Specific [place] 1.012 (1.001-1.035) Urine Protein Negative (Negative) Urine Glucose (UA) Negative (Negative) Urine Ketones Trace H (Negative) Urine Blood Negative (Negative) Urine Nitrite Negative (Negative) Urine Bilirubin Negative (Negative) Urine Urobilinogen <2.0 (<2.0) mg/dL Ur Leukocyte Esterase Negative (Negative) Urine RBC 1 (0-5) /hpf Urine WBC 3 (0-5) /hpf Ur Squamous Epith Cells 2 (0-4) /hpf Urine Mucus Rare H (None) /hpf Influenza Type A (PCR) Not Detected (Not Detectd) Influenza Type B (PCR) Not Detected (Not Detectd) RSV (PCR) Not Detected (Not Detectd) SARS-CoV-2 (PCR) Not Detected (Not Detectd) 05/27/23 Range/Units 13:08 WBC (3.8-10.6) k/uL RBC (3.80-5.40) m/uL Hgb (11.4-16.0) gm/dL Hct (34.0-46.0) % MCV (80.0-100.0) fL MCH (25.0-35.0) pg MCHC (31.0-37.0) g/dL RDW (11.5-15.5) % Plt Count (150-450) k/uL MPV Neutrophils % % Lymphocytes % % Monocytes % % Eosinophils % % Basophils % % Neutrophils # (1.3-7.7) k/uL Lymphocytes # (1.0-4.8) k/uL Monocytes # (0-1.0) k/uL Eosinophils # (0-0.7) k/uL Basophils # (0-0.2) k/uL Sodium 139 (137-145) mmol/L Potassium 3.3 L (3.5-5.1) mmol/L Chloride 107 (98-107) mmol/L Carbon Dioxide 19 L (22-30) mmol/L Anion Gap 13 mmol/L BUN 12 (7-17) mg/dL Creatinine 0.74 (0.52-1.04) mg/dL Est GFR (CKD-EPI)AfAm >90 (>60 ml/min/1.73 sqM) Est GFR (CKD-EPI)NonAf >90 (>60 ml/min/1.73 sqM) Glucose 101 H (74-99) mg/dL Calcium 9.4 (8.4-10.2) mg/dL Total Bilirubin 1.6 H (0.2-1.3) mg/dL AST 63 H (14-36) U/L ALT 119 H (4-34) U/L Alkaline Phosphatase 68 (38-126) U/L Total Protein 7.9 (6.3-8.2) g/dL Albumin 4.7 (3.5-5.0) g/dL Amylase 60 (30-110) U/L Lipase 145 (23-300) U/L Urine Color Urine Appearance (Clear) Urine pH (5.0-8.0) Ur Specific [place] (1.001-1.035) Urine Protein (Negative) Urine Glucose (UA) (Negative) Urine Ketones (Negative) Urine Blood (Negative) Urine Nitrite (Negative) Urine Bilirubin (Negative) Urine Urobilinogen (<2.0) mg/dL Ur Leukocyte Esterase (Negative) Urine RBC (0-5) /hpf Urine WBC (0-5) /hpf Ur Squamous Epith Cells (0-4) /hpf Urine Mucus (None) /hpf Influenza Type A (PCR) (Not Detectd) Influenza Type B (PCR) (Not Detectd) RSV (PCR) (Not Detectd) SARS-CoV-2 (PCR) (Not Detectd) - Radiology Data Radiology results: report reviewed, image reviewed Disposition Clinical Impression: Nausea vomiting and diarrhea Disposition: HOME SELF-CARE Condition: Stable Instructions (If sedation given, give patient instructions): Acute Nausea and Vomiting (ED), Acute Diarrhea (ED) Additional Instructions: Please follow-up with PCP in the next 1-2 days. Take medications as prescribed. Return to ER for any new or worsening symptoms. Is patient prescribed a controlled substance at d/c from ED?: No Referrals: Chrissy Ayala [Primary Care Provider] - 1-2 days Time of Disposition: 14:58
[2023-05-27 12:33] LABS: Basophils # (A) 0.1 k/uL (0-0.2); Basophils % (A) 1 %; Eosinophils # (A) 0.1 k/uL (0-0.7); Eosinophils % (A) 1 %; HCT 49.6 % (34.0-46.0); HGB 16.9 gm/dL (11.4-16.0); Lymphocytes # (A) 3.3 k/uL (1.0-4.8); Lymphocytes % (A) 36 %; MCHC 34.2 g/dL (31.0-37.0); MCV 84.8 fL (80.0-100.0); Mean Platelet Volume 7.6; Monocytes # (A) 0.5 k/uL (0-1.0); Monocytes % (A) 6 %; Neutrophils # (A) 4.9 k/uL (1.3-7.7); Neutrophils % (A) 53 %; Platelet Count 463 k/uL (150-450); RBC 5.84 m/uL (3.80-5.40); WBC 9.2 k/uL (3.8-10.6)
--- NOTE | 2023-05-27 13:25 | XR ---
EXAMINATION TYPE: XR chest 2V DATE OF EXAM: 05/27/2023 COMPARISON: 06/10/2020 HISTORY: Dyspnea TECHNIQUE: Frontal and lateral views of the chest are obtained. FINDINGS: There is no focal air space opacity, pleural effusion, or pneumothorax seen. The cardiac silhouette size is within normal limits. The osseous structures are intact. IMPRESSION: No acute cardiopulmonary process.
[2023-05-27 13:29] LABS: ALT 119 U/L (4-34); AST 63 U/L (14-36); African American GFR (CKD) >90 (>60 ml/min/1.73 sqM); Albumin 4.7 g/dL (3.5-5.0); Alkaline Phosphatase 68 U/L (38-126); Amylase 60 U/L (30-110); Anion Gap 13 mmol/L; Blood Urea Nitrogen 12 mg/dL (7-17); Calcium 9.4 mg/dL (8.4-10.2); Carbon Dioxide 19 mmol/L (22-30); Chloride 107 mmol/L (98-107); Glucose 101 mg/dL (74-99); Lipase 145 U/L (23-300); Non-African American GFR(CKD) >90 (>60 ml/min/1.73 sqM); Potassium 3.3 mmol/L (3.5-5.1); Sodium 139 mmol/L (137-145); Total Bilirubin 1.6 mg/dL (0.2-1.3); Total Protein 7.9 g/dL (6.3-8.2)
[2023-05-27] MEDS ORDERED: PROCHLORPERAZINE INJ 10 MG/2 ML VIAL IVP STA (13:36)
[2023-05-27 13:52] VITALS: RESP 18
[2023-05-27 14:37] LABS: Appearance,Urine Cloudy (Clear); Bilirubin,Urine Negative (Negative); Blood,Urine Negative (Negative); Color,Urine Light Yellow; Glucose,Urine (UA) Negative (Negative); Ketones,Urine Trace (Negative); Leukocyte Esterase,Urine Negative (Negative); Mucus,Urine Rare /hpf; Nitrite,Urine Negative (Negative); PH, Urine 5.5 (5.0-8.0); Protein,Urine Negative (Negative); RBC,Urine 1 /hpf (0-5); Specific Gravity,Urine 1.012 (1.001-1.035); Squamous Epithelial Cell,Urine 2 /hpf (0-4); Urobilinogen,Urine <2.0 mg/dL (<2.0); WBC,Urine 3 /hpf (0-5)
[2023-05-27 15:22] VITALS: BP 133/89; PULSE 111; TEMP 97.8
== END 2023-05-27 15:17 | disposition home or self-care (01) ==
LOC: EC 10:32
DX: R11.2 Nausea with vomiting, unspecified (principal); R19.7 Diarrhea, unspecified; E11.9 Type 2 diabetes mellitus without complications; I10 Essential (primary) hypertension; F41.9 Anxiety disorder, unspecified; F32.A Depression, unspecified; Z79.899 Other long term (current) drug therapy; Z20.822 Contact with and (suspected) exposure to COVID-19; Z88.0 Allergy status to penicillin; Z88.5 Allergy status to narcotic agent
CPT/HCPCS: 36415; 80053; 82150; 83690; 85025; 81001; 87636; 71046; 99284; 96374; 96375; J0780; J2765